=== PATIENT | female | born 1965 | race African-American/Black ===

== ENCOUNTER → 2016-11-11 | Outpatient (CLI) | payer OTHER ==
[~2016-11-11] MED LIST: 1-ME1LIQ PO; AMLO10TA2 PO; ATOR20TA15 PO; COZA50TA PO; FLUO20CA4 PO; FLUT1SPR5 EACH NARE; GLIP5TAB8 PO; HYDR25TA5 PO; IMIT25TA PO; POTA10TA2 PO; TRAM-492 PO; VENTAER INH; ZYRT10CA PO
[2016-11-11 13:49] LABS: BLOOD GAS CARBOXYHEMOGLOBIN 1.4 % (0-4); BLOOD GAS HCO3 28 mmol/L (22-26); BLOOD GAS METHEMOGLOBIN 1.3 % (0-2); BLOOD GAS O2 HGB SATURATION 93 % (90-100); BLOOD GAS OXYGEN CONTENT 15.2 Vol % (12.0-20.0); BLOOD GAS PCO2 45 mmHg (38-42); BLOOD GAS PO2 84 mmHg (61-120); BLOOD GAS TOTAL HGB 11.6 G/DL (12.0-16.0); TEMP CORR TO 98.6
[2016-11-11 13:50] LABS: CRITICAL VALUE NO; DRAW SITE RT RADIAL; FIO2 21 %; NUMBER OF ARTERIAL PUNCTURES 1; STAT NO; ULNAR PULSE PRESENT
--- NOTE | 2017-01-07 09:13 | RSPPFT ---
DATE OF PROCEDURE: 11/11/16 COMMENTS: Spirometry with FVC of 1.8, FEV1 of 1.7, FEV1/FVC ratio at 96%. TLC is 87% of predicted. Diffusion capacity is normal. Room air arterial blood gases show pH of 7.42, PCO2 of 45, PO2 of 84. IMPRESSION: 1. No evidence of airways obstruction. 2. No evidence of airways restriction. 3. Normal diffusion capacity. 4. Adequate oxygenation and alveolar ventilation.
== END ==
LOC: HRSP 11:21
PROVIDERS: ATTEND Internal Medicine Sleep Medicine
DX: R06.89 Other abnormalities of breathing (principal)
CPT/HCPCS: 36600; 82805; 94060; 94726; 94729

== ENCOUNTER 2016-12-14 01:14 | Emergency (ER) | payer OTHER ==
[~2016-12-14] VITALS: Ht 165.1 cm; Wt 104.7 kg
[~2016-12-14 01:14] MED LIST changes: -AMLO10TA2 PO; -FLUO20CA4 PO
[2016-12-14 01:25] VITALS: BP 142/92; PULSE 95; RESP 18; TEMP 98.8; O2SAT 99
[2016-12-14] MEDS ORDERED: RESP: ALBUTEROL 2.5 MG/IPRATROPIUM 0.5 MG NEB (SCH) INH ONE (01:45)
[2016-12-14] MEDS ORDERED: VENTAER INH (01:51)
--- NOTE | 2016-12-14 01:51 | PD ---
HPI Chief Complaint: Respiratory Symptoms Time Seen by Provider: 01:27 Travel History International Travel<30 days: No Contact w/Intl Traveler<30days: No Traveled to known affect area: No History of Present Illness HPI 51-year-old female complains of shortness of breath. Patient states that she was sleeping and started having gurgling noise from the lung that woke up. Patient has history of asthma and has an inhaler at home. Patient recently was diagnosed with sleep apnea. Patient denies any coughing congestion fever chills. Patient denies any chest pain. Patient denies any abdominal pain. Patient denies any nausea vomiting diarrhea. PFSH Past Medical History Arthritis: No Asthma: No Autoimmune Disease: No Blood Disorders: No Anxiety: No Depression: No Heart Rhythm Problems: No Cancer: No Cardiovascular Problems: No High Cholesterol: No Congestive Heart Failure: No COPD: No Cerebrovascular Accident: No Diabetes: Yes Diminished Hearing: No Endocrine: No GERD: No Glaucoma: No Genitourinary: No Headaches: No Hepatitis: No Hiatal Hernia: No Hypertension: Yes Immune Disorder: No Musculoskeletal: Yes (CURRENT KNEE ISSUES) Neurologic: Yes (MIGRAINES) Psychiatric: No Reproductive: No Respiratory: Yes (HX BRONCHITIS) Migraines: Yes Myocardial Infarction: No Seizures: No Sickle Cell Disease: No Sleep Apnea: No Thyroid Disease: No Ulcer: No Past Surgical History Abdominal Surgery: Yes (LAP KEE) AICD: No Cardiac Surgery: No Cholecystectomy: Yes Ear Surgery: No Endocrine Surgery: No Eye Surgery: No Gynecologic Surgery: Yes (hysterectomy) Hysterectomy: Yes Joint Replacement: No Oral Surgery: No Pacemaker: No Thoracic Surgery: No Social History Alcohol Use: No Tobacco Use: No Substance Use: No Allergies-Medications (Allergen,Severity, Reaction): Coded Allergies: Percocet (Verified Allergy, Intermediate, HIVES, 12/14/16) Lisinopril (Verified Allergy, Mild, Cough, 12/14/16) Reported Meds & Prescriptions Reported Meds & Active Scripts Active Ventolin Hfa 18 GM Inh (Albuterol Sulfate) 90 Mcg/Act Aer 2 Puff INH Q6H PRN Imitrex (Sumatriptan Succinate) 25 Mg Tab 25 Mg PO ONCE PRN If a satisfactory response has not been obtained at 2 hours, a second dose may be administered Glipizide 5 Mg Tab 5 Mg PO BIDAC Take 30 minutes before a meal Flonase Nasal [place] (Fluticasone Nasal [place]) 50 Mcg/Act [place] 100 Mcg EACH NARE DAILY Reported Zyrtec Allergy (Cetirizine HCl) 10 Mg Cap 10 Mg PO DAILY Cozaar (Losartan Potassium) 50 Mg Tab 50 Mg PO BID Hydrochlorothiazide 25 Mg Tab 25 Mg PO BID Atorvastatin (Atorvastatin Calcium) 20 Mg Tab 20 Mg PO HS Review of Systems General / Constitutional: No: Fever Eyes: No: Visual changes HENT: No: Headaches Cardiovascular: No: Chest Pain or Discomfort Respiratory: Positive: Shortness of Breath Gastrointestinal: No: Abdominal Pain Genitourinary: No: Dysuria Musculoskeletal: No: Pain Skin: No Rash Neurologic: No: Weakness Psychiatric: No: Depression Endocrine: No: Polydipsia Hematologic/Lymphatic: No: Easy Bruising Physical Exam Narrative GENERAL: Well-nourished, well-developed patient. SKIN: Warm and dry. HEAD: Normocephalic. EYES: No scleral icterus. No injection or drainage. NECK: Supple, trachea midline. No JVD or lymphadenopathy. CARDIOVASCULAR: Regular rate and rhythm without murmurs, gallops, or rubs. RESPIRATORY: Breath sounds equal bilaterally. No accessory muscle use. GASTROINTESTINAL: Abdomen soft, non-tender, nondistended. MUSCULOSKELETAL: No cyanosis, or edema. BACK: Nontender without obvious deformity. No CVA tenderness. Neurologic exam normal. Data Data Last Documented VS Vital Signs Date Time Temp Pulse Resp B/P Pulse Ox O2 Delivery O2 Flow Rate FiO2 12/14/16 01:44 88 18 99 Room Air 12/14/16 01:25 98.8 142/92 Orders Chest, Single Ap (12/14/16 01:45) Albuterol-Ipratropium Neb (Duoneb Neb) (12/14/16 01:45) [facility] Medical Decision Making Medical Screen Exam Complete: Yes Emergency Medical Condition: Yes Interpretation(s) 2 26 AM. Chest x-ray shows no acute consolidation. Differential Diagnosis Differential diagnosis including acute exacerbation of asthma, bronchitis, pneumonia, pneumothorax. Narrative Course 51-year-old female with sudden onset of shortness of breath. Patient's O2 saturation is 99-100 percent at room air. Examination benign. History of asthma. Diagnosis Primary Impression: Acute asthma exacerbation Qualified Code: J45.21 - Mild intermittent asthma with acute exacerbation Patient Instructions: General Instructions Additional Instructions: Used inhaler as directed. Follow-up with personal physician. Return if worse. Med/Other Pt SpecificInfo: Prescription(s) given Scripts Albuterol 18 GM Inh (Ventolin Hfa 18 GM Inh)90 Mcg/Act Aer2 Puff INH Q6H PRN ( SHORTNESS OF BREATH) #1 INHALER Ref 0 Prov:Palmer Duque MD 12/14/16 Disposition: 01 DISCHARGE HOME Condition: Stable Palmer Duque MD Dec 14, 2016 01:51
[2016-12-14 02:43] VITALS: BP 146/84; PULSE 76; RESP 18; O2SAT 98
--- NOTE | 2016-12-14 02:43 | RADHPO ---
EXAM DATE/TIME: 12/14/2016 01:58 [facility] COMPARISON: No previous studies available for comparison. INDICATIONS : Short of breath. MEDICAL HISTORY : Diabetes mellitus type II. Hypertension SURGICAL HISTORY : None. ENCOUNTER: Initial ACUITY: 1 day PAIN SCORE: 6/10 LOCATION: Bilateral chest FINDINGS: Cardiomegaly. No focal consolidation or significant effusion. No pneumothorax. Minimal basilar atelec tasis. CONCLUSION: 1. Mild cardiomegaly. Minimal basilar atelectasis. Kurt White MD on December 14, 2016 at 2:40 Board Certified Radiologist. This report was verified electronically.
[2016-12-14] MEDS ORDERED: POTA10TA2 PO (15:10)
[2017-01-21] MEDS ORDERED: FLUO20CA4 PO (16:35)
[2017-02-22] MEDS ORDERED: ATOR20TA15 PO (13:10)
[2017-02-22] MEDS ORDERED: GLIP5TAB8 PO (13:12)
[2017-03-10] MEDS ORDERED: AMLO10TA2 PO (15:25)
[2017-03-29] MEDS ORDERED: HYDR25TA5 PO (13:38)
[2017-03-30] MEDS ORDERED: COZA50TA PO (08:47)
== END 2016-12-14 02:44 | disposition home or self-care (01) ==
LOC: PHED 01:14
DX: J45.901 Unspecified asthma with (acute) exacerbation (principal); E11.9 Type 2 diabetes mellitus without complications; I10 Essential (primary) hypertension; Z79.4 Long term (current) use of insulin
CPT/HCPCS: 71010; 94664; 99284

== ENCOUNTER 2016-12-14 11:39 | Observation (INO) | payer OTHER ==
[2016-12-14] VITALS (7 sets, daily range): BP systolic 118–179; BP diastolic 66–103; PULSE 68–94; RESP 16–18; TEMP 98–98.8; O2SAT 95–99
[2016-12-14] MEDS ORDERED: ASPIRIN 81 MG CHEW TAB PO ONE (12:30)
[2016-12-14] MEDS ORDERED: SODIUM CHLORIDE 0.9% FLUSH 5 ML FLUSH IVF PRN ×2 (12:30→14:00)
[2016-12-14 12:54] LABS: AUTOMATED NEUTROPHIL # 4.1 TH/MM3 (1.8-7.7); BASOPHIL % 0.5 % (0.0-2.0); EOSINOPHIL # 0.2 TH/MM3 (0-0.4); EOSINOPHIL % 2.8 % (0.0-4.0); HEMATOCRIT 35.1 % (35.0-46.0); HEMO FLAGS DIFF FINAL; LYMPH % 35.1 % (9.0-44.0); LYMPHOCYTE # 2.6 TH/MM3 (1.0-4.8); MEAN CELL VOLUME 84.2 FL (80.0-100.0); MEAN CORPUSCULAR HEMOGLOBIN 28.2 PG (27.0-34.0); MEAN CORPUSCULAR HGB CONC 33.5 % (32.0-36.0); MONO % 7.1 % (0.0-8.0); NEUT % 54.5 % (16.0-70.0); PLATELET COUNT 189 TH/MM3 (150-450); RED BLOOD COUNT 4.17 MIL/MM3 (4.00-5.30); RED CELL DISTRIBUTION WIDTH 14.5 % (11.6-17.2); WHITE BLOOD COUNT 7.5 TH/MM3 (4.0-11.0)
[2016-12-14 13:06] LABS: APTT (PATIENT) 27.8 SEC (24.3-30.1); PROTHROMBIN TIME - PATIENT 10.6 SEC (9.8-11.6)
--- NOTE | 2016-12-14 13:08 | PD ---
HPI Chief Complaint: Chest Pain Time Seen by Provider: 12:12 Travel History International Travel<30 days: No Contact w/Intl Traveler<30days: No Traveled to known affect area: No History of Present Illness HPI Is a 51-year-old woman who presents to the emergency department complaining of chest pain. She states that she first started having some headache yesterday. She is prone to headaches especially in the past when she is around her menstrual cycle. She went to the [facility] and was taking Excedrin Migraine. She woke up in the middle the night with sweats she describes as gurgling breathing associated with shortness of breath and pressure in her chest. She went to the [place] emergency department where she had a chest x-ray done that was negative and a bronchodilator. States she felt better after the albuterol and so she went home. She was diagnosed of asthma. She states she's had bronchospasm and asthma-like symptoms to strong perfumes in the past, but has never been really diagnosed with asthma. She went to follow-up with her primary physician today after she was not feeling much better, was describing this pressure-like chest discomfort that she was having, and was referred back to the emergency department for further cardiac evaluation. Patient endorses some mild chest discomfort at this time. No other complaints. She is a history of sleep apnea, hypertension, diabetes, and obesity. She does not wear C Pap machine now. History Past Medical History Narrative Medical Hypertension Diabetes Obesity OTTO Influenza Vaccination: No Menopausal: Yes Social History Alcohol Use: No Tobacco Use: No Allergies-Medications (Allergen,Severity, Reaction): Coded Allergies: Percocet (Verified Allergy, Intermediate, HIVES, 12/14/16) Lisinopril (Verified Allergy, Mild, Cough, 12/14/16) Reported Meds & Prescriptions Reported Meds & Active Scripts Active Ventolin Hfa 18 GM Inh (Albuterol Sulfate) 90 Mcg/Act Aer 2 Puff INH Q6H PRN Imitrex (Sumatriptan Succinate) 25 Mg Tab 25 Mg PO ONCE PRN If a satisfactory response has not been obtained at 2 hours, a second dose may be administered Glipizide 5 Mg Tab 5 Mg PO BIDAC Take 30 minutes before a meal Flonase Nasal [place] (Fluticasone Nasal [place]) 50 Mcg/Act [place] 100 Mcg EACH NARE DAILY Reported Zyrtec Allergy (Cetirizine HCl) 10 Mg Cap 10 Mg PO DAILY Cozaar (Losartan Potassium) 50 Mg Tab 50 Mg PO BID Hydrochlorothiazide 25 Mg Tab 25 Mg PO BID Atorvastatin (Atorvastatin Calcium) 20 Mg Tab 20 Mg PO HS Review of Systems Except as stated in HPI: all other systems reviewed are Neg Physical Exam Narrative GENERAL: Well-appearing 51 year-old woman, no acute distress. SKIN: Warm and dry. NECK: Trachea midline. No JVD. CARDIOVASCULAR: Regular rate and rhythm. Soft systolic murmur. RESPIRATORY: No accessory muscle use. Clear to auscultation. Breath sounds equal bilaterally. GASTROINTESTINAL: Abdomen soft, non-tender, nondistended. Hepatic and splenic margins not palpable. MUSCULOSKELETAL: No obvious deformities. No clubbing. No cyanosis. No edema. NEUROLOGICAL: Awake and alert. No obvious cranial nerve deficits. Motor grossly within normal limits. Normal speech. PSYCHIATRIC: Appropriate mood and affect; insight and judgment normal. Data Data Last Documented VS Vital Signs Date Time Temp Pulse Resp B/P Pulse Ox O2 Delivery O2 Flow Rate FiO2 12/14/16 12:26 96 Room Air 12/14/16 12:26 171/85 12/14/16 11:41 98.2 94 16 Orders Electrocardiogram (12/14/16 ) Complete Blood Count With Diff (12/14/16 12:22) Comprehensive Metabolic Panel (12/14/16 12:22) Magnesium (Mg) (12/14/16 12:22) Prothrombin Time / Inr (Pt) (12/14/16 12:22) Act Partial Throm Time (Ptt) (12/14/16 12:22) Troponin I (12/14/16 12:22) Lipase (12/14/16 12:22) Ecg Monitoring (12/14/16 12:22) Bilateral Bp Monitoring (12/14/16 12:22) Iv Access Insert/Monitor (12/14/16 12:22) Oximetry (12/14/16 12:22) Oxygen Administration (12/14/16 12:22) Aspirin Chew (Aspirin Chew) (12/14/16 12:30) Sodium Chloride 0.9% Flush (Ns Flush) (12/14/16 12:30) Labs Laboratory Tests Test 12/14/16 12:25 White Blood Count 7.5 TH/MM3 Red Blood Count 4.17 MIL/MM3 Hemoglobin 11.8 GM/DL Hematocrit 35.1 % Mean Corpuscular Volume 84.2 FL Mean Corpuscular Hemoglobin 28.2 PG Mean Corpuscular Hemoglobin 33.5 % Concent Red Cell Distribution Width 14.5 % Platelet Count 189 TH/MM3 Mean Platelet Volume 9.9 FL Neutrophils (%) (Auto) 54.5 % Lymphocytes (%) (Auto) 35.1 % Monocytes (%) (Auto) 7.1 % Eosinophils (%) (Auto) 2.8 % Basophils (%) (Auto) 0.5 % Neutrophils # (Auto) 4.1 TH/MM3 Lymphocytes # (Auto) 2.6 TH/MM3 Monocytes # (Auto) 0.5 TH/MM3 Eosinophils # (Auto) 0.2 TH/MM3 Basophils # (Auto) 0.0 TH/MM3 CBC Comment DIFF FINAL Differential Comment Prothrombin Time 10.6 SEC Prothromb Time International 1.0 RATIO Ratio Activated Partial 27.8 SEC Thromboplast Time Sodium Level 137 MEQ/L Potassium Level 3.3 MEQ/L Chloride Level 97 MEQ/L Carbon Dioxide Level 30.3 MEQ/L Anion Gap 10 MEQ/L Blood Urea Nitrogen 15 MG/DL Creatinine 1.21 MG/DL Estimat Glomerular Filtration 57 ML/MIN Rate Random Glucose 154 MG/DL Calcium Level 9.1 MG/DL Magnesium Level 1.7 MG/DL Total Bilirubin 0.4 MG/DL Aspartate Amino Transf 35 U/L (AST/SGOT) Alanine Aminotransferase 37 U/L (ALT/SGPT) Alkaline Phosphatase 99 U/L Troponin I LESS THAN 0.02 NG/ML Total Protein 8.4 GM/DL Albumin 3.8 GM/DL Lipase 129 U/L [facility] Medical Decision Making Medical Screen Exam Complete: Yes Emergency Medical Condition: Yes Interpretation(s) My review of EKG: Normal sinus rhythm at a rate of 76, normal axis, no definite evidence of acute ischemia. CBC is unremarkable CMP mildly elevated creatinine. Troponin negative. Lipase normal. Coags unremarkable Chest x-ray from earlier this morning: Mild cardiomegaly. Minimal bibasilar atelectasis. Differential Diagnosis Sleep apnea, bronchospasm, bronchitis, ACS, PE, other Narrative Course Medical decision making This is a 51 year-old woman presents emergency Department with abnormal breathing last night associated with shortness of breath and pressure-like chest discomfort. She looks well now. Suspect this is more related to her sleep apnea than anything else. I don't hear any wheezing to suggest bronchospasm. X-ray yesterday was negative. EKG is nondiagnostic. Given the pressure-like chest discomfort, at this point we'll recommend admission to chest pain Center for observation. Diagnosis Primary Impression: Chest pain Good Melissa MD Dec 14, 2016 13:07
[2016-12-14 13:11] LABS: ANION GAP 10 MEQ/L (5-15); AST (GOT) 35 U/L (15-37); BICARBONATE 30.3 MEQ/L (21.0-32.0); BLOOD UREA NITROGEN 15 MG/DL (7-18); CHLORIDE 97 MEQ/L (98-107); GLOMERULAR FILTRATION RATE 57 ML/MIN (>89); MAGNESIUM 1.7 MG/DL (1.5-2.5); POTASSIUM 3.3 MEQ/L (3.5-5.1); SODIUM (NA) 137 MEQ/L (136-145)
[2016-12-14 13:16] LABS: ALKALINE PHOSPHATASE 99 U/L (45-117); ALT (GPT) 37 U/L (10-53); TOTAL BILIRUBIN ADULT 0.4 MG/DL (0.2-1.0)
[2016-12-14] MEDS ORDERED: SODIUM CHLOR 0.9% 1000 ML INJ 1,000 ML IV SCH (13:58)
[2016-12-14] MEDS ORDERED: GLUCAGON 1 MG/ML VIAL IM/SQ PRN (14:00)
[2016-12-14] MEDS ORDERED: POTASSIUM CHLORIDE 25 MEQ EFFERVESCENT TAB PO ONE (14:00)
[2016-12-14] MEDS ORDERED: cloNIDine HCL 0.1 MG TAB PO PRN (14:00)
[2016-12-14] MEDS ORDERED: ACETAMINOPHEN 500 MG CPLT PO PRN (14:00)
[2016-12-14] MEDS ORDERED: PANTOPRAZOLE SODIUM 40 MG VIAL IVP ONE (14:00)
[2016-12-14] MEDS ORDERED: ALPRAZolam 0.25 MG TAB PO PRN (14:00)
[2016-12-14] MEDS ORDERED: DEXTROSE 50% IN WATER 50 ML VIAL(D50) IV PRN (14:00)
[2016-12-14] MEDS ORDERED: ONDANSETRON HCL 4 MG/2 ML VIAL IV PRN (14:00)
[2016-12-14] MEDS ORDERED: RESP: ALBUTEROL 2.5 MG/IPRATROPIUM 0.5 MG NEB (PRN) INH (14:00)
--- NOTE | 2016-12-14 14:59 | HHI.HP ---
[facility] Primary Care Physician Janae Paredes MD Chief Complaint Chest pain History of Present Illness This is a 51-year-old female that presents to the ED at the request of her primary care physician to evaluate her chest discomfort. Patient states that she was in the [facility] emergency department because of migraines, shortness of breath, and chest discomfort. She states she was told that she has asthma. She was given a breathing treatment and was feeling better. Discomfort persisted but was improved. She describes the discomfort as a tightness. Denies everything told that she has asthma but states she is been told that she had bronchospasm and has inhalers for that. Denies history of CAD but states her family does. Her brother and mother have CAD. She had no nausea diaphoresis with her symptoms. Review of Systems General: Patient denies fevers, chills recent, and recent travel HEENT: Patient denies headache, sore throat, difficulty swallowing. Cardiovascular: Has the chest discomfort as mentioned above. Denies sensation of heart beating rapidly or irregularly. Denies diaphoresis. No syncope. Respiratory: Was having some shortness of breath. She also felt as if she was gurgling when she was breathing. Denies inspirational chest discomfort. Denies coughing wheezing or hemoptysis. GI: Patient denies nausea, vomiting, diarrhea, abdominal pain, bloody stools. Musculoskeletal: Patient denies joint pain or edema. Denies calf pain or edema. Neurovascular: Patient denies numbness, tingling, weakness in extremities. Denies headache. Endocrine: Denies polyuria and polydipsia. Hematologic: Denies easy bruising. Skin: Denies rash or itching. Past Family Social History Allergies: Coded Allergies: Percocet (Verified Allergy, Intermediate, HIVES, 12/14/16) Lisinopril (Verified Allergy, Mild, Cough, 12/14/16) Past Medical History Hypertension, hyperlipidemia, diabetes, migraines, and recently diagnosed with sleep apnea but does not have a CPAP device at home. Denies known CAD. Past Surgical History Bilateral carpal tunnel release, bilateral knees, hysterectomy, and cholecystectomy. Reported Medications Reported Meds & Active Scripts Active Ventolin Hfa 18 GM Inh (Albuterol Sulfate) 90 Mcg/Act Aer 2 Puff INH Q6H PRN Imitrex (Sumatriptan Succinate) 25 Mg Tab 25 Mg PO ONCE PRN If a satisfactory response has not been obtained at 2 hours, a second dose may be administered Glipizide 5 Mg Tab 5 Mg PO BIDAC Take 30 minutes before a meal Flonase Nasal [place] (Fluticasone Nasal [place]) 50 Mcg/Act [place] 100 Mcg EACH NARE DAILY Reported Zyrtec Allergy (Cetirizine HCl) 10 Mg Cap 10 Mg PO DAILY Cozaar (Losartan Potassium) 50 Mg Tab 50 Mg PO BID Hydrochlorothiazide 25 Mg Tab 25 Mg PO BID Atorvastatin (Atorvastatin Calcium) 20 Mg Tab 20 Mg PO HS Active Ordered Medications Current Medications Medications (Trade) Dose Ordered Sig/Nacho Route Start Time Stop Time Status Last Admin (NS Flush) 2 ml UNSCH PRN IVF 12/14/16 14:00 (NS Flush) 2 ml BID IVF 12/14/16 21:00 (Tylenol) 500 mg Q4H PRN PO 12/14/16 14:00 ([place] 7.5-325 Mg) 1 tab Q4H PRN PO 12/14/16 14:00 UNV (Zofran Inj) 4 mg Q6H PRN IV 12/14/16 14:00 (Aspirin) 325 mg DAILY PO 12/15/16 09:00 (Xanax) 0.25 mg Q8H PRN PO 12/14/16 14:00 (D50w (Vial) Inj) 25 ml UNSCH PRN IV 12/14/16 14:00 (Glucagon Inj) 1 mg UNSCH PRN IM/SQ 12/14/16 14:00 UNV Clonidine 0.1 mg 0.1 mg Q4H PRN PO 12/14/16 14:00 (NS 1000 ml Inj) 1,000 ml @ 125 mls/hr Q8H IV 12/14/16 13:58 12/14/16 21:57 (K-Lyte Cl Eff) 25 meq NOW ONCE PO 12/14/16 14:00 12/14/16 14:01 UNV Family History Her brother has CAD and has had a CABG in his 50s. Her mother has CAD with stents. Social History Patient is a lifetime nonsmoker. Denies alcohol or illicit drugs. Physical Exam Vital Signs Vital Signs Date Time Temp Pulse Resp B/P Pulse Ox O2 Delivery O2 Flow Rate FiO2 12/14/16 14:24 77 18 179/103 99 Room Air 12/14/16 12:26 96 Room Air 12/14/16 12:26 171/85 12/14/16 12:26 96 Room Air 12/14/16 11:41 98.2 94 16 163/90 98 Physical Exam GENERAL: This is a well-nourished, well-developed patient, in no apparent distress. Patient speaks in clear complete sentences. Patient is pleasant. HEENT: Head is atraumatic and normocephalic. Neck is supple without lymphadenopathy and trachea is midline. No JVD or carotid bruits. CARDIOVASCULAR: Regular rate and rhythm without murmurs, gallops, or rubs. RESPIRATORY: Chest wall is very tender when palpating over the sternum. This is the discomfort that brought her to the ED. Clear to auscultation. Breath sounds equal bilaterally. No wheezes, rales, or rhonchi. No use of accessory muscles. GASTROINTESTINAL: Abdomen is nontender, nondistended. Abdomen soft. No obvious pulsatile mass or bruit. No CVA tenderness. Strong femoral pulses bilaterally. Normal bowel sounds in all quadrants. MUSCULOSKELETAL: Patient is moving upper and lower extremities freely. No calf tenderness or edema, no Homans sign. Strong pulses in upper and lower extremities. NEUROLOGICAL: Patient is alert and oriented. Cranial nerves 2-12 are grossly intact. No focal deficits and speech is clear. SKIN: No rash and turgor is normal. Laboratory Laboratory Tests Test 12/14/16 12:25 White Blood Count 7.5 Red Blood Count 4.17 Hemoglobin 11.8 Hematocrit 35.1 Mean Corpuscular Volume 84.2 Mean Corpuscular Hemoglobin 28.2 Mean Corpuscular Hemoglobin 33.5 Concent Red Cell Distribution Width 14.5 Platelet Count 189 Mean Platelet Volume 9.9 Neutrophils (%) (Auto) 54.5 Lymphocytes (%) (Auto) 35.1 Monocytes (%) (Auto) 7.1 Eosinophils (%) (Auto) 2.8 Basophils (%) (Auto) 0.5 Neutrophils # (Auto) 4.1 Lymphocytes # (Auto) 2.6 Monocytes # (Auto) 0.5 Eosinophils # (Auto) 0.2 Basophils # (Auto) 0.0 CBC Comment DIFF FINAL Differential Comment Prothrombin Time 10.6 Prothromb Time International 1.0 Ratio Activated Partial 27.8 Thromboplast Time Sodium Level 137 Potassium Level 3.3 Chloride Level 97 Carbon Dioxide Level 30.3 Anion Gap 10 Blood Urea Nitrogen 15 Creatinine 1.21 Estimat Glomerular Filtration 57 Rate Random Glucose 154 Calcium Level 9.1 Magnesium Level 1.7 Total Bilirubin 0.4 Aspartate Amino Transf 35 (AST/SGOT) Alanine Aminotransferase 37 (ALT/SGPT) Alkaline Phosphatase 99 Troponin I LESS THAN 0.02 Total Protein 8.4 Albumin 3.8 Lipase 129 Result Diagram: 12/14/16 1225 12/14/16 1225 Imaging Patient had a chest x-ray last night and [facility] ED. There was mild cardiomegaly. Minimal basilar atelectasis. Course Initial EKG is sinus rhythm without significant ST segment depressions or elevation. Nonspecific T waves in leads V1 and V2. Assessment and Plan Assessment and Plan * Chest pain: Patient will continue to have serial cardiac enzymes and EKGs for ruling out purposes. She will be evaluated by Dr. Nixon in the chest pain center. She will proceed with stress testing in the morning if she were to rule out. She would be discharged home if her stress test were to be nonischemic. * Hypertension: Continue her medication. * Hyperlipidemia: Continue current medication. * Diabetes: Patient will need to follow diabetic diet. She will need to resume her medication discharge. She'll be covered with sliding scale coverage while the chest pain center. * Hypokalemia: Patient was given potassium supplementation. * Migraines: Patient will have an edge easy as needed. She states that she can take Lortab. * Sleep apnea: Patient will discuss with her physician to get a CPAP device. Adam Gan Dec 14, 2016 14:58
[2016-12-14] MEDS ORDERED: POTA10TA2 PO (15:10)
[2016-12-14 16:12] LABS: CREATINE KINASE 489 U/L (26-192)
[2016-12-14 16:24] LABS: CKMB 2.8 NG/ML (0.5-3.6)
[2016-12-14] MEDS: INSULIN ASPART SUPPLEMENTAL SCALE SQ SCH ×2 (16:30→20:26)
--- NOTE | 2016-12-14 17:01 | EKG ---
Date Performed: 12/14/2016 Time Performed: 12:14:09 PTAGE: 51 years EKG: Sinus rhythm NONSPECIFIC T-WAVE ABNORMALITY BORDERLINE ECG Since PREVIOUS TRACING , no significant change noted PREVIOUS TRACIN04/08/2015 09.09 DOCTOR: Dominga Nixon Interpretating Date/Time 12/14/2016 16:59:22
--- NOTE | 2016-12-14 17:01 | EKG ---
Date Performed: 12/14/2016 Time Performed: 15:30:17 PTAGE: 51 years EKG: Sinus rhythm NONSPECIFIC T-WAVE ABNORMALITY BORDERLINE ECG Since PREVIOUS TRACING , no significant change noted PREVIOUS TRACIN12/14/2016 12.14 DOCTOR: Dominga Nixon Interpretating Date/Time 12/14/2016 16:59:39
[2016-12-14] MEDS: ACETAMINOPHEN/HYDROcodone 325 MG/7.5 MG TAB PO PRN (18:08)
[2016-12-14 19:02] LABS: CREATINE KINASE 483 U/L (26-192)
[2016-12-14 19:14] LABS: CKMB 2.8 NG/ML (0.5-3.6)
[2016-12-14] MEDS: SODIUM CHLORIDE 0.9% FLUSH 5 ML FLUSH IVF SCH (20:25)
[2016-12-14] MEDS: LOSARTAN 50 MG TAB PO SCH (20:27)
[2016-12-14] MEDS: HYDROCHLOROTHIAZIDE 25 MG TAB PO SCH (20:27)
[2016-12-14] MEDS ORDERED: ATORVASTATIN 20 MG TAB PO SCH (21:00)
[2016-12-15 02:52] VITALS: BP 109/70; PULSE 82; RESP 22; TEMP 98.7; O2SAT 99
[2016-12-15] MEDS: INSULIN ASPART SUPPLEMENTAL SCALE SQ SCH ×2 (05:33→11:00)
[2016-12-15 07:34] VITALS: BP 118/71; PULSE 77; RESP 19; TEMP 97.9
[2016-12-15 08:00] VITALS: PULSE 90
[2016-12-15] MEDS ORDERED: ASPIRIN 325 MG TAB PO SCH (09:00)
[2016-12-15] MEDS ORDERED: POTASSIUM CHLORIDE 10 MEQ CONTROLLED RELEASE TAB PO SCH (11:00)
--- NOTE | 2016-12-15 11:01 | RADRPT ---
EXAM DATE/TIME: 12/15/2016 08:38 [facility] COMPARISON: No previous studies available for comparison. INDICATIONS : Chest tightness with shortness of breath for one day. Angina DOSE: 31.2 mCi Tc99m Myoview at stress 11.0 mCi Tc99m Myoview at rest REST HEART RATE: 91 BPM TARGET HEART RATE: 143 BPM MAX HEART RATE: 149 BPM REST BLOOD PRESSURE: 138/84 mmHg MAX BLOOD PRESSURE: 148/80 mmHg EJECTION FRACTION: 33% MEDICAL HISTORY : Hypertension. Diabetes mellitus type 2. Asthma. SURGICAL HISTORY : Hysterectomy. Cholecystectomy. ENCOUNTER: Initial ACUITY: 1 day PAIN SCALE: 6/10 LOCATION: Midsternal chest TECHNIQUE: The patient underwent upright treadmill exercise in the chest pain center. Continuous ECG tracing wa s monitored during stress. Gated SPECT imaging was performed after stress, and conventional SPECT im aging was performed at rest. The examination was performed on a SPECT/CT scanner, both attenuation-c orrected and non-corrected datasets were reviewed. FINDINGS: There is dilatation of the ventricular cavity. Ejection fraction is 33% with global hypokinesis, wor se in the anterior septal region. There is affixed defect in the anterior septal region beginning in mid ventricular wall extending to the apex. There is redistribution in the septum extending up towards the apex malleolar of 10-15%. The best perfused myocardium as is the lateral and inferior wall. CONCLUSION: Stress-induced redistribution in the septal region extending towards the base consistent with ischemi a. Hypokinesis as described above. RISK CATEGORY: Intermediate (1-3% Annual Mortality Rate) Rehan Orellana MD FACR on December 15, 2016 at 10:58 Board Certified Radiologist. This report was verified electronically.
[2016-12-15] MEDS: LOSARTAN 50 MG TAB PO SCH (11:33)
[2016-12-15] MEDS: HYDROCHLOROTHIAZIDE 25 MG TAB PO SCH (11:34)
[2016-12-15] MEDS: SODIUM CHLORIDE 0.9% FLUSH 5 ML FLUSH IVF SCH (11:34)
[2016-12-15 11:46] VITALS: BP 124/83; PULSE 97; RESP 20; TEMP 98; O2SAT 100
--- NOTE | 2016-12-15 12:54 | MB ---
cc: MONIQUE HENRY DATE OF CONSULTATION: 12/15/2016 INDICATION Chest pain. HISTORY OF PRESENT ILLNESS This is a 51-year-old female who has no prior history of heart disease, who presented to the emergency department with acute onset of substernal chest pain. She was over at the [facility] due to migraine and some shortness of breath earlier. She has history of asthma. She continued to have persistent substernal tightness and was sent over to the chest pain center here. She had negative troponin, unremarkable electrocardiogram. She did also have some nausea and mild diaphoresis with her symptoms. She underwent stress test which revealed intermediate risk with stress-induced redistribution of the septal region, 10-15% myocardium, in addition to low ejection fraction of 33%. She denies any prior history of known heart disease or cardiomyopathy. She has not had any shortness of breath with lying flat or edema. We are consulted for consideration of cardiac catheterization. PAST MEDICAL HISTORY 1. Hypertension. 2. Hyperlipidemia. 3. Diabetes. 4. Migraines. 5. Sleep apnea. ALLERGIES 1. PERCOCET. 2. LISINOPRIL. MEDICATIONS 1. Ventolin. 2. Imitrex. 3. Glipizide. Reported medications: 1. Zyrtec. 2. Cozaar. 3. Hydrochlorothiazide. 4. Atorvastatin. REVIEW OF SYSTEMS A 12-point review of systems was performed and negative unless otherwise noted in the history of present illness. FAMILY HISTORY Denies any family history of early coronary artery disease or sudden cardiac . SOCIAL HISTORY Denies any alcohol, tobacco or drug use. PHYSICAL EXAMINATION VITAL SIGNS: Temperature 98, pulse 97, blood pressure 124/83 mmHg. GENERAL: Alert and oriented x3, in no acute distress. HEENT: Exam shows pupils reactive to light and accommodation. Extraocular movements are intact. NECK: No jugular venous distention. No thyromegaly. No lymphadenopathy. No carotid bruits. LUNGS: Clear to auscultation bilaterally. CARDIOVASCULAR: Regular rate and rhythm without murmurs, rubs or gallops. ABDOMEN: Nontender, nondistended. Good bowel sounds. No hepatosplenomegaly. EXTREMITIES: No clubbing, cyanosis or edema. Good peripheral pulses. NEUROLOGIC: Cranial nerves intact. Motor and sensory grossly intact. LABORATORY DATA WBC 7.5, hemoglobin 11.8, platelet count 189. INR is 1. Sodium 137, potassium 2.3, BUN 15, creatinine 1.21. Troponin is negative x3. ELECTROCARDIOGRAM Electrocardiogram is sinus rhythm, nonspecific ST-T wave changes. ASSESSMENT 1. Unstable angina. 2. Hypertension. 3. Hyperlipidemia. 4. Diabetes. PLAN The patient has typical and atypical features to her symptoms. Troponins were negative. Electrocardiogram is unremarkable but the stress test is intermediate risk. She has multiple cardiovascular risk factors. After discussion she is agreeable to proceed with cardiac catheterization for a definitive diagnosis. She is n.p.o. Will gently hydrate her for a mild elevation in creatinine. We will attempt from a radial approach. Will follow-up with a 2-D echocardiogram to document ejection fraction. I think the nuclear stress test is likely inaccurate as she has no clinical symptoms consistent with cardiomyopathy or congestive heart failure. MD HEATHER Green/[place] /12:20 PM /12:41 PM
[2016-12-15] MEDS ORDERED: HEPARIN SODIUM - IV 10,000 UNITS/10 ML VIAL ONE (14:26)
[2016-12-15] MEDS ORDERED: HEPARIN-NS/PF INJ 500 ML ONE (14:26)
[2016-12-15] MEDS ORDERED: MIDAZOLAM HCL 2 MG/2 ML VIAL ONE (14:26)
[2016-12-15] MEDS ORDERED: IOHEXOL 350 MG/ML 100 ML BTL (for Cath Lab) OTHER ONE (14:58)
--- NOTE | 2016-12-15 15:05 | HHI.DS ---
Discharge Summary Admission Date Dec 14, 2016 at 13:38 Admitting Diagnosis chest pain CBC/BMP: 12/14/16 1225 12/14/16 1225 Significant Findings Laboratory Tests Test 12/14/16 12/14/16 12/14/16 12:25 15:25 18:24 Potassium Level 3.3 MEQ/L (3.5-5.1) Chloride Level 97 MEQ/L (98-107) Creatinine 1.21 MG/DL (0.50-1.00) Estimat Glomerular Filtration 57 ML/MIN (>89) Rate Random Glucose 154 MG/DL (74-106) Troponin I LESS THAN 0.02 LESS THAN 0.02 LESS THAN 0.02 NG/ML NG/ML NG/ML (0.02-0.05) (0.02-0.05) (0.02-0.05) Total Protein 8.4 GM/DL (6.4-8.2) Total Creatine Kinase 489 U/L 483 U/L (26-192) (26-192) Pt Condition on Discharge: Good Discharge Disposition: Discharge Home Discharge Instructions DIET: Follow Instructions for: Heart Healthy Diet, Diabetic Diet Activities you can perform: Weight Bearing as Good Hurtado MD Dec 15, 2016 15:05
[2016-12-15] MEDS ORDERED: BACITRACIN OINT 0.9 GM PKT TOP ONE (15:15)
[2016-12-15] MEDS ORDERED: MISC INFORMATION XX ONE (15:15)
--- NOTE | 2016-12-15 16:10 | MA ---
cc: GOOD HENRY DATE 12/15/2016 COMPANY ACCOUNTANT Good Henry MD, [facility], PROCEDURE PERFORMED 1. Fluoroscopy with interpretation. 2. Left heart catheterization. 3. Left ventriculography 4. Coronary angiography. METHOD Risks, benefits and alternatives were discussed with the patient. The patient understood and consented to the procedure. PROCEDURE DETAILS The patient was brought in to the catheterization lab and placed on the catheterization table. The right wrist was prepped and draped in a sterile fashion. The right wrist was anesthetized with 2% Lidocaine. The right radial artery was cannulated and a 6 [place] 7 cm sheath was placed without difficulty. LEFT HEART CATHETERIZATION A 6 [place] JR5 catheter was advanced across the aortic valve without difficulty. Intraventricular hemodynamic pressure 100/4 mmHg. LEFT VENTRICULOGRAPHY Left ventriculography was performed in a right anterior oblique view using a 6 [place] angled pigtail catheter. 30 cc contrast injection with good opacification. Left ventricular ejection fraction visually estimated at 65% without regional wall motion abnormalities. No significant mitral regurgitation noted. CORONARY ANGIOGRAPHY 1. The left main coronary circulation is angiographically normal. 2. The left anterior descending coronary has mild luminal irregularities proximally. There is a large first diagonal branch that is angiographically normal. The remainder of the left anterior descending coronary is angiographically normal. 3. Left circumflex gives rise to an obtuse marginal branch which is angiographically normal. 4. The right coronary is a large dominant vessel giving rise to a posterior descending branch. Right coronary is angiographically normal. CONCLUSIONS 1. Mild non-obstructing coronary artery disease. 2. Normal left ventricular systolic function. PLAN The patient's symptoms do not appear to be cardiac in etiology. We will monitor for any post procedural complications. We will continue with medical therapy. She can follow up on an outpatient basis with her primary care doctor. Good Henry MD SM/KK /3:04 PM /3:55 PM
--- NOTE | 2016-12-15 16:16 | EKG ---
Date Performed: 12/14/2016 Time Performed: 18:41:32 PTAGE: 51 years EKG: Sinus rhythm NONSPECIFIC T-WAVE ABNORMALITY BORDERLINE ECG PREVIOUS TRACING : 12/14/2016 15.30 Since previous tracing, no significant change noted DOCTOR: Derik Bartlett Interpretating Date/Time 12/15/2016 16:14:54
--- NOTE | 2016-12-15 16:16 | TR ---
Date Performed: 12/15/2016 Time Performed: 09:26:22 DOCTOR: Derik Bartlett DRUG LIST: CLINICAL HISTORY: CHEST PAIN REASON FOR TEST: REASON FOR ENDING: OBSERVATION: CONCLUSION: GLENN PROTOCOL NUC ETT. NO CP. FELT LIGHTHEADED IMMMEDIATELY IN RECOVERY. PT WAS ALS O SOB.Maximum XH=407 % Max HR Achieved=89.0% Maximum XE=982/80 Total Exercise Time=4:03 COMMENTS: Patient exercised using the Glenn protocol. No electrocardiographic changes were seen to suggest ischemia. Hemodynamic response to exercise was normal. No significant arrhythmia was prese nt. Nuclear imaging pending
[2016-12-15] MEDS: ACETAMINOPHEN/HYDROcodone 325 MG/7.5 MG TAB PO PRN (17:17)
[2017-01-21] MEDS ORDERED: FLUO20CA4 PO (16:35)
[2017-02-22] MEDS ORDERED: ATOR20TA15 PO (13:10)
[2017-02-22] MEDS ORDERED: GLIP5TAB8 PO (13:12)
[2017-03-10] MEDS ORDERED: AMLO10TA2 PO (15:25)
[2017-03-29] MEDS ORDERED: HYDR25TA5 PO (13:38)
[2017-03-30] MEDS ORDERED: COZA50TA PO (08:47)
== END 2016-12-15 18:21 | disposition home or self-care (01) ==
LOC: NEPC 11:39 → NEDA 13:38 → NEPGCP 14:38 → HCIS 12-15 16:22
PROVIDERS: ADMIT Internal Medicine Cardiovascular Disease; ATTEND Internal Medicine Cardiovascular Disease
DX: I25.110 Atherosclerotic heart disease of native coronary artery with unstable angina pectoris (principal); R06.02 Shortness of breath; R61 Generalized hyperhidrosis; G47.33 Obstructive sleep apnea (adult) (pediatric); I10 Essential (primary) hypertension; E11.9 Type 2 diabetes mellitus without complications; E66.9 Obesity, unspecified; Z79.899 Other long term (current) drug therapy; Z79.84 Long term (current) use of oral hypoglycemic drugs; E78.5 Hyperlipidemia, unspecified; E87.6 Hypokalemia; G43.909 Migraine, unspecified, not intractable, without status migrainosus
CPT/HCPCS: 78452; 80053; 82550; 82552; 82948; 83690; 83735; 84484; 85025; 85610; 85730; 93005; 93017; 93458; 99285; A9502; C1769; C1893; C9113; G0378; J1644; J2250; J3010; J7030; Q9967

== ENCOUNTER → 2017-09-20 | Outpatient (CLI) | payer OTHER ==
[~2017-09-20] MED LIST changes: -1-ME1LIQ PO; +AMLO10TA2 PO; +CETI-1 PO; +DESO0.053 TOPICAL; +FLUO20CA4 PO; +TEMA30CA PO; -TRAM-492 PO
[2017-09-20 11:14] LABS: AUTOMATED NEUTROPHIL # 5.7 TH/MM3 (1.8-7.7); BASOPHIL % 0.3 % (0.0-2.0); EOSINOPHIL # 0.3 TH/MM3 (0-0.4); HEMATOCRIT 32.9 % (35.0-46.0); HEMO FLAGS DIFF FINAL; LYMPH % 27.6 % (9.0-44.0); LYMPHOCYTE # 2.4 TH/MM3 (1.0-4.8); MEAN CELL VOLUME 83.7 FL (80.0-100.0); MEAN CORPUSCULAR HEMOGLOBIN 28.3 PG (27.0-34.0); MEAN CORPUSCULAR HGB CONC 33.9 % (32.0-36.0); NEUT % 63.1 % (16.0-70.0); PLATELET COUNT 236 TH/MM3 (150-450); RED BLOOD COUNT 3.93 MIL/MM3 (4.00-5.30); RED CELL DISTRIBUTION WIDTH 13.9 % (11.6-17.2); WHITE BLOOD COUNT 8.9 TH/MM3 (4.0-11.0)
--- NOTE | 2017-09-20 22:10 | EKG ---
Date Performed: 09/20/2017 Time Performed: 11:17:32 PTAGE: 52 years EKG: Sinus rhythm NORMAL ECG PREVIOUS TRACING : 12/14/2016 18.41 Compared to prior tracing no significant change DOCTOR: Juanito Hope Interpretating Date/Time 09/20/2017 22:10:05
== END ==
LOC: PHPRE 10:46
PROVIDERS: ATTEND Orthopaedic Surgery
DX: Z01.810 Encounter for preprocedural cardiovascular examination (principal); Z01.812 Encounter for preprocedural laboratory examination; M75.41 Impingement syndrome of right shoulder
CPT/HCPCS: 36415; 85025; 93005

== ENCOUNTER → 2017-09-30 | Day surgery (SDC) | payer OTHER ==
[~2017-09-30] VITALS: Ht 165.1 cm; Wt 100.0 kg
[~2017-09-30] MED LIST changes: +ACETAMINOPHEN 1000 MG/100 ML 100 ML IV ONE; +BUPIVACAINE/EPINEPHRINE 0.5% PF 30 ML VIAL ONE; +CHLORHEXIDINE GLUCONATE 2 % 1 PACK (2 CLOTHS) TOPICAL PRN; +CHLORHEXIDINE GLUCONATE 4% SOLN 120 ML BTL TOPICAL SCH; +DEXAMETHASONE SOD PHOS 4 MG/ML VIAL ONE; +FAMOTIDINE 20 MG/2 ML VIAL ONE; -FLUO20CA4 PO; +INSULIN HUMAN REGULAR 1,000 UNITS/10 ML VIAL SQ PRN; +LACTATED RINGER'S 1000 ML IV PRN; +METOPROLOL TARTRATE 25 MG TAB PO PRN; +MIDAZOLAM HCL 2 MG/2 ML VIAL ONE; +POVIDONE IODINE 5% (ANTISEPSIS KIT) 4 APPLICATIONS EACH NARE PRN; +SODIUM CHLOR 0.9% 250 ML INJ 250 ML ONE; +SODIUM CHLORID 0.9% 500 ML IV PRN; +SUGAMMADEX SODIUM 200 MG/2 ML VIAL IV PUSH ONE; +VANCOMYCIN HCL 1000 MG VIAL ONE; +ceFAZolin 2 GM PREMIX 50 ML IV SCH
[2017-09-30 06:47] VITALS: PULSE 80
[2017-09-30 07:30] VITALS: PULSE 76
[2017-09-30 11:45] VITALS: BP 99/57; PULSE 69; RESP 16; TEMP 98.1; O2SAT 97
--- NOTE | 2017-09-30 18:10 | MP ---
cc: TOBY VERA M.D. DATE OF SURGERY: 09/30/2017 SURGEON: Toby Vera MD. PREOPERATIVE DIAGNOSIS: Impingement syndrome of the right shoulder. POSTOPERATIVE DIAGNOSIS Impingement syndrome right shoulder with chronic tearing of the rotator cuff. PROCEDURE 1. Anterior decompression with partial acromioplasty and excision of coracoacromial ligament and 2. Repair chronic rotator cuff tear. PROCEDURE IN DETAIL The patient was placed on the operating table in the supine position and adequate general anesthesia was administered by the anesthesiologist. The patient was then transferred into the modified beach-chair position and the right shoulder padded and then prepped and draped in the usual sterile fashion. Prior to incision a time-out was called and the patient's name procedure, location, etc. were fully confirmed. A 1-inch incision was made over the acromial process and taken down to the subcutaneous tissues. Bleeding points were electrocauterized. Deep fascia was incised and the deltoid muscle insertion transected with electrocautery placing a blunt retractor underneath it to will avoid any injury to the underlying structures. The coracoacromial ligament was identified and found to be extremely thickened and in fact partially adhered to the underlying rotator cuff. It was freed and then excised and relieving that impingement. The rotator cuff was not yet fully visible and the acromionectomy was performed utilizing a high-speed power bur. The rotator cuff was better visualized and did show chronic fraying and tearing of the supraspinatus. This was then debrided and repaired with interrupted sutures of #2 FiberWire. After thorough irrigation the deltoid muscle was repaired with interrupted sutures of the same #2 FiberWire the skin. The subcutaneous tissue was closed with running simple 3-0 Vicryl and the skin edges and skin edges approximated with a running for subcuticular Vicryl. Sponge count, needle counts were counts were reported correct x2. The estimated blood loss was less than 25 mL. This procedure was tolerated well. The patient was transferred to the recovery room in satisfactory condition. Toby Vera MD [facility]/ /9:06 AM /6:01 PM
== END | disposition home or self-care (01) ==
LOC: PHSDC 06:10
PROVIDERS: ATTEND Orthopaedic Surgery
DX: M75.101 Unspecified rotator cuff tear or rupture of right shoulder, not specified as traumatic (principal); M75.41 Impingement syndrome of right shoulder; I10 Essential (primary) hypertension
CPT/HCPCS: 01610; 23420; 64415; J0131; J0690; J1100; J2250; J3370; J7050; J7120

== ENCOUNTER 2017-12-15 00:13 | Emergency (ER) | payer OTHER ==
[~2017-12-15] VITALS: Ht 165.1 cm; Wt 95.3 kg
[~2017-12-15 00:13] MED LIST changes: -ACETAMINOPHEN 1000 MG/100 ML 100 ML IV ONE; -BUPIVACAINE/EPINEPHRINE 0.5% PF 30 ML VIAL ONE; -CHLORHEXIDINE GLUCONATE 2 % 1 PACK (2 CLOTHS) TOPICAL PRN; -CHLORHEXIDINE GLUCONATE 4% SOLN 120 ML BTL TOPICAL SCH; -DEXAMETHASONE SOD PHOS 4 MG/ML VIAL ONE; -FAMOTIDINE 20 MG/2 ML VIAL ONE; -INSULIN HUMAN REGULAR 1,000 UNITS/10 ML VIAL SQ PRN; -LACTATED RINGER'S 1000 ML IV PRN; -METOPROLOL TARTRATE 25 MG TAB PO PRN; -MIDAZOLAM HCL 2 MG/2 ML VIAL ONE; -POVIDONE IODINE 5% (ANTISEPSIS KIT) 4 APPLICATIONS EACH NARE PRN; -SODIUM CHLOR 0.9% 250 ML INJ 250 ML ONE; -SODIUM CHLORID 0.9% 500 ML IV PRN; -SUGAMMADEX SODIUM 200 MG/2 ML VIAL IV PUSH ONE; -VANCOMYCIN HCL 1000 MG VIAL ONE; -ZYRT10CA PO; -ceFAZolin 2 GM PREMIX 50 ML IV SCH
[2017-12-15 00:35] VITALS: BP 120/60; PULSE 93; RESP 15; TEMP 98.6; O2SAT 100
[2017-12-15 02:15] LABS: BILIRUBIN, URINE NEG (NEG); BLOOD, URINE NEG (NEG); GLUCOSE,URINE 1000 OR GREATER mg/dL (NEG); KETONE, URINE NEG (NEG); NITRITE,URINE NEG (NEG); PH, URINE 5.5 (5.0-8.5); URINE LEUKOCYTE ESTERASE NEG (NEG)
[2017-12-15 02:17] LABS: BASOPHIL % 0.2 % (0.0-2.0); EOSINOPHIL # 0.2 TH/MM3 (0-0.4); EOSINOPHIL % 3.2 % (0.0-4.0); HEMATOCRIT 35.2 % (35.0-46.0); HEMOGLOBIN 11.4 GM/DL (11.6-15.3); LYMPH % 31.5 % (9.0-44.0); LYMPHOCYTE # 2.2 TH/MM3 (1.0-4.8); MEAN CELL VOLUME 84.6 FL (80.0-100.0); MEAN CORPUSCULAR HEMOGLOBIN 27.3 PG (27.0-34.0); MEAN CORPUSCULAR HGB CONC 32.3 % (32.0-36.0); MEAN PLATELET VOLUME 12.2 FL (7.0-11.0); MONO % 7.6 % (0.0-8.0); MONOCYTE # 0.5 TH/MM3 (0-0.9); NEUT % 57.5 % (16.0-70.0); PLATELET COUNT 158 TH/MM3 (150-450); RED BLOOD COUNT 4.17 MIL/MM3 (4.00-5.30); RED CELL DISTRIBUTION WIDTH 13.7 % (11.6-17.2); WHITE BLOOD COUNT 6.9 TH/MM3 (4.0-11.0)
[2017-12-15 02:20] LABS: URINE COLOR YELLOW (YELLW/STRAW)
[2017-12-15 02:21] LABS: BACTERIA, URINE RARE /hpf; RBC, URINE 0-2 /hpf (0-3); SQUAMOUS EPITHELIAL CELL URINE 0-5 /hpf (0-5); WBC, URINE 0-2 /hpf (0-5)
--- NOTE | 2017-12-15 02:22 | PD ---
HPI Chief Complaint: Respiratory Symptoms Time Seen by Provider: 01:13 Travel History International Travel<30 days: No Contact w/Intl Traveler<30days: No Traveled to known affect area: No History of Present Illness HPI The patient is a 52-year-old female who complains of nausea, vomiting for about 7 days. She also has diarrhea. She does feel dehydrated. She denies any fever. She does have a history of asthma but states her asthma is not bothering her at this time. She denies any blood in the vomitus or stool. She has had a cholecystectomy but still has her appendix. PFSH Past Medical History Arthritis: No Asthma: Yes Autoimmune Disease: No Blood Disorders: No Anxiety: No Depression: No Heart Rhythm Problems: No Cancer: No Cardiac Catheterization: Yes Cardiovascular Problems: Yes (HTN) High Cholesterol: Yes Congestive Heart Failure: No COPD: No Cerebrovascular Accident: No Diabetes: Yes Patient Takes Glucophage: No Diminished Hearing: No Endocrine: No Gastrointestinal Disorders: No GERD: No Glaucoma: No Genitourinary: No Headaches: No Hepatitis: No Hiatal Hernia: No Hypertension: Yes Immune Disorder: No Musculoskeletal: Yes (CURRENT KNEE ISSUES;RIGHT SHOULDER INJURY) Neurologic: Yes (MIGRAINES) Reproductive: No Respiratory: Yes (SLEEP APNEA) Migraines: Yes Myocardial Infarction: No Seizures: No Sickle Cell Disease: No Sleep Apnea: Yes Thyroid Disease: No Ulcer: No Tetanus Vaccination: < 5 Years Influenza Vaccination: No ?: Not Menopausal: Yes Past Surgical History Abdominal Surgery: Yes (LAP KEE) AICD: No Cardiac Surgery: Yes (HEART CATH (NOTHING FOUND)) Cholecystectomy: Yes Coronary Artery Bypass Graft: No Ear Surgery: No Endocrine Surgery: No Eye Surgery: No Genitourinary Surgery: No Gynecologic Surgery: Yes (hysterectomy) Hysterectomy: Yes Joint Replacement: No Neurologic Surgery: No Oral Surgery: No Pacemaker: No Thoracic Surgery: No Other Surgery: Yes Family History Family Myocardial Infarction: Yes (brother, mother) Social History Alcohol Use: No Tobacco Use: No Substance Use: No Allergies-Medications (Allergen,Severity, Reaction): Coded Allergies: oxycodone (Verified Allergy, Intermediate, HIVES, 12/15/17) lisinopril (Verified Allergy, Mild, Cough, 12/15/17) Reported Meds & Prescriptions Reported Meds & Active Scripts Active Hydrochlorothiazide 25 Mg Tab 25 Mg PO BID Desonide Topical (Desonide) 0.05% Lotn 1 Applic TOPICAL BID Amlodipine (Amlodipine Besylate) 10 Mg Tab 10 Mg PO DAILY Glipizide 5 Mg Tab 5 Mg PO BIDAC Take 30 minutes before a meal Cozaar (Losartan Potassium) 50 Mg Tab 50 Mg PO BID Atorvastatin (Atorvastatin Calcium) 20 Mg Tab 20 Mg PO HS Ventolin Hfa 18 GM Inh (Albuterol Sulfate) 90 Mcg/Act Aer 2 Puff INH Q6H PRN Imitrex (Sumatriptan Succinate) 25 Mg Tab 25 Mg PO ONCE PRN If a satisfactory response has not been obtained at 2 hours, a second dose may be administered Flonase Nasal [place] (Fluticasone Nasal [place]) 50 Mcg/Act [place] 100 Mcg EACH NARE DAILY Reported Zyrtec (Cetirizine HCl) 10 Mg Tablet PO DAILY Temazepam 30 Mg Cap 30 Mg PO HS PRN Potassium Chloride ER (Potassium Chloride) 10 Meq Tab 10 Meq PO DAILY Review of Systems Except as stated in HPI: all other systems reviewed are Neg Physical Exam Narrative GENERAL: The patient is obese, alert, moderately dehydrated appearing in moderate apparent distress with her midline epigastric discomfort. Her vital signs show heart rate of 93 but are otherwise normal. SKIN: Focused skin assessment warm/dry. HEAD: Atraumatic. Normocephalic. EYES: Pupils equal and round. No scleral icterus. No injection or drainage. ENT: No nasal bleeding or discharge. Mucous membranes pink and slightly dry. NECK: Trachea midline. No JVD. CARDIOVASCULAR: Regular rate and rhythm. No murmur appreciated. RESPIRATORY: No accessory muscle use. Clear to auscultation. Breath sounds equal bilaterally. GASTROINTESTINAL: Abdomen soft, with tenderness to direct palpation in the midline epigastrium, nondistended. Hepatic and splenic margins not palpable. No guarding or rebound is present. MUSCULOSKELETAL: No obvious deformities. No clubbing. No cyanosis. No edema. NEUROLOGICAL: Awake and alert. No obvious cranial nerve deficits. Motor grossly within normal limits. Normal speech. PSYCHIATRIC: Appropriate mood and affect; insight and judgment normal. Data Data Last Documented VS Vital Signs Date Time Temp Pulse Resp B/P (MAP) Pulse Ox O2 Delivery O2 Flow Rate FiO2 12/15/17 04:16 98.1 75 18 124/72 (89) 100 Room Air Orders Orders Complete Blood Count With Diff (12/15/17 02:00) Basic Metabolic Panel (Bmp) (12/15/17 02:00) Lipase (12/15/17 02:00) Urinalysis - C+S If Indicated (12/15/17 02:00) Sodium Chlor 0.9% 1000 Ml Inj (Ns 1000 M (12/15/17 02:30) Ondansetron Inj (Zofran Inj) (12/15/17 02:30) Insulin Human Regular Inj (Novolin R Inj (12/15/17 03:30) Insulin Human Regular Inj (Novolin R Inj (12/15/17 04:45) Ketorolac Inj (Toradol Inj) (12/15/17 04:45) Orphenadrine Inj (Norflex Inj) (12/15/17 04:45) Ed Discharge Order (12/15/17 04:57) Labs Laboratory Tests Test 12/15/17 02:07 White Blood Count 6.9 TH/MM3 Red Blood Count 4.17 MIL/MM3 Hemoglobin 11.4 GM/DL Hematocrit 35.2 % Mean Corpuscular Volume 84.6 FL Mean Corpuscular Hemoglobin 27.3 PG Mean Corpuscular Hemoglobin Concent 32.3 % Red Cell Distribution Width 13.7 % Platelet Count 158 TH/MM3 Mean Platelet Volume 12.2 FL Neutrophils (%) (Auto) 57.5 % Lymphocytes (%) (Auto) 31.5 % Monocytes (%) (Auto) 7.6 % Eosinophils (%) (Auto) 3.2 % Basophils (%) (Auto) 0.2 % Neutrophils # (Auto) 4.0 TH/MM3 Lymphocytes # (Auto) 2.2 TH/MM3 Monocytes # (Auto) 0.5 TH/MM3 Eosinophils # (Auto) 0.2 TH/MM3 Basophils # (Auto) 0.0 TH/MM3 CBC Comment DIFF FINAL Differential Comment Urine Color YELLOW Urine Turbidity CLEAR Urine pH 5.5 Urine Specific [place] 1.034 Urine Protein NEG mg/dL Urine Glucose (UA) 1000 OR GREATER mg/dL Urine Ketones NEG mg/dL Urine Occult Blood NEG Urine Nitrite NEG Urine Bilirubin NEG Urine Leukocyte Esterase NEG Urine RBC 0-2 /hpf Urine WBC 0-2 /hpf Urine Squamous Epithelial Cells 0-5 /hpf Urine Bacteria RARE /hpf Microscopic Urinalysis Comment CULT NOT INDICATED Blood Urea Nitrogen 18 MG/DL Creatinine 1.90 MG/DL Random Glucose 687 MG/DL Calcium Level 9.5 MG/DL Sodium Level 127 MEQ/L Potassium Level 3.4 MEQ/L Chloride Level 84 MEQ/L Carbon Dioxide Level 32.3 MEQ/L Anion Gap 11 MEQ/L Estimat Glomerular Filtration Rate 33 ML/MIN Lipase 119 U/L MDM Medical Decision Making Medical Screen Exam Complete: Yes Emergency Medical Condition: Yes Medical Record Reviewed: Yes Interpretation(s) The CBC is normal except for hemoglobin of 11.4. The basic metabolic profile shows a sodium of 127, potassium 3.4, bicarb of 32.3 with creatinine 1.9 and GFR of 33 and glucose of 687. The lipase is normal. The calcium is normal. The anion gap is normal. The urinalysis is normal except for 1000 or greater glucose and culture is not indicated. Differential Diagnosis Diabetes mellitus poor control, infection urine, other infection, electrolyte disorder, diabetic gastroparesis Narrative Course The patient strongly wants to go home. She has an appointment with her primary care physician later on today. She will be given a two day work excuse. She was told that we initially wanted to admit her but she can go home as long as she sees her primary care physician today. It is now 0500 in the morning and the patient feels much better and wants to go home. Impression: Diabetes mellitus poor control Diagnosis Primary Impression: Poorly controlled diabetes mellitus Additional Instructions: As we discussed, follow-up with your primary care physician today as scheduled. We gave you the laboratory work, please take it to him. Disposition: 01 DISCHARGE HOME Condition: Stable Willam Molina MD Dec 15, 2017 02:22
[2017-12-15 02:26] LABS: BICARBONATE 32.3 MEQ/L (21.0-32.0); CALCIUM 9.5 MG/DL (8.5-10.1)
[2017-12-15 02:29] LABS: CREATININE 1.9 MG/DL (0.50-1.00)
[2017-12-15] MEDS ORDERED: ONDANSETRON HCL 4 MG/2 ML VIAL IV ONE (02:30)
[2017-12-15] MEDS: SODIUM CHLOR 0.9% 1000 ML INJ 1,000 ML IV SCH ×2 (02:35→02:37)
[2017-12-15] MEDS ORDERED: INSULIN HUMAN REGULAR 1,000 UNITS/10 ML VIAL IV PUSH ONE ×2 (03:30→04:45)
[2017-12-15 04:16] VITALS: BP 124/72; PULSE 75; RESP 18; TEMP 98.1; O2SAT 100
[2017-12-15] MEDS ORDERED: ORPHENADRINE INJ 60 MG/2 ML AMP IM ONE (04:45)
[2017-12-15] MEDS ORDERED: KETOROLAC TROMETHAMINE 60 MG/2 ML (IM) VIAL IM ONE (04:45)
[2017-12-15 05:23] VITALS: BP 129/85; TEMP 98.2
== END 2017-12-15 05:25 | disposition home or self-care (01) ==
LOC: PHED 00:13
DX: E11.65 Type 2 diabetes mellitus with hyperglycemia (principal); J45.909 Unspecified asthma, uncomplicated; I10 Essential (primary) hypertension; E78.00 Pure hypercholesterolemia, unspecified; Z88.5 Allergy status to narcotic agent; Z88.8 Allergy status to other drugs, medicaments and biological substances
CPT/HCPCS: 80048; 81001; 83690; 85025; 96361; 96374; 96375; 96376; 99284; J1815; J2405; J7030

== ENCOUNTER 2017-12-28 15:17 | Inpatient (IN) | payer OTHER ==
[~2017-12-28] VITALS: Ht 165.1 cm; Wt 90.0 kg
[2017-12-28] MEDS ORDERED: SODIUM CHLOR 0.9% 1000 ML INJ 1,000 ML IV ONE ×2 (15:21→17:00)
[2017-12-28 15:29] VITALS: BP 174/94; PULSE 89; RESP 22; TEMP 98.8; O2SAT 100
[2017-12-28] MEDS ORDERED: SODIUM CHLORIDE 0.9% FLUSH 10 ML FLUSH IVF PRN (15:30)
[2017-12-28 15:49] LABS: HEMOGLOBIN 11.7 GM/DL (11.6-15.3); MEAN CELL VOLUME 83.1 FL (80.0-100.0); MEAN CORPUSCULAR HEMOGLOBIN 28.7 PG (27.0-34.0); MEAN CORPUSCULAR HGB CONC 34.5 % (32.0-36.0); WHITE BLOOD COUNT 9.5 TH/MM3 (4.0-11.0)
[2017-12-28 15:50] LABS: AUTOMATED NEUTROPHIL # 4.4 TH/MM3 (1.8-7.7); BASOPHIL # 0.1 TH/MM3 (0-0.2); BASOPHIL % 0.7 % (0.0-2.0); EOSINOPHIL # 0.3 TH/MM3 (0-0.4); EOSINOPHIL % 3.2 % (0.0-4.0); LYMPH % 43.5 % (9.0-44.0); LYMPHOCYTE # 4.1 TH/MM3 (1.0-4.8); MEAN PLATELET VOLUME 10.5 FL (7.0-11.0); MONO % 6.5 % (0.0-8.0); MONOCYTE # 0.6 TH/MM3 (0-0.9); NEUT % 46.1 % (16.0-70.0); PLATELET COUNT 184 TH/MM3 (150-450); RED CELL DISTRIBUTION WIDTH 14.6 % (11.6-17.2)
--- NOTE | 2017-12-28 15:58 | RADRPT ---
EXAM DATE/TIME: 12/28/2017 15:47 [place] COMPARISON: No previous studies available for comparison. INDICATIONS : Head pain due to fall. RADIATION DOSE: 38.13 CTDIvol (mGy) MEDICAL HISTORY : Diabetes mellitus type 2. Hypertension. Hypercholesterolemia. SURGICAL HISTORY : Hysterectomy. ENCOUNTER: Initial ACUITY: 1 day PAIN SCALE: 3/10 LOCATION: Bilateral cranial TECHNIQUE: Multiple contiguous axial images were obtained of the head. Using automated exposure control and adj ustment of the mA and/or kV according to patient size, radiation dose was kept as low as reasonably a chievable to obtain optimal diagnostic quality images. DICOM format image data is available electro nically for review and comparison. FINDINGS: CEREBRUM: The ventricles are normal for age. No evidence of midline shift, mass lesion, hemorrhage or acute in farction. No extra-axial fluid collections are seen. POSTERIOR FOSSA: The cerebellum and brainstem are intact. The 4th ventricle is midline. The cerebellopontine angle i s unremarkable. EXTRACRANIAL: The visualized portion of the orbits is intact. SKULL: The calvaria is intact. No evidence of skull fracture. CONCLUSION: 1. No acute intracranial abnormality. Jose Narayan MD on December 28, 2017 at 15:53 Board Certified Radiologist. This report was verified electronically.
[2017-12-28 16:00] LABS: PROTHROMBIN TIME - PATIENT 10.4 SEC (9.8-11.6)
[2017-12-28] MEDS ORDERED: METF500T PO (16:02)
[2017-12-28 16:03] VITALS: BP 144/83; PULSE 79; RESP 16; O2SAT 100
--- NOTE | 2017-12-28 16:03 | PD ---
HPI Chief Complaint: Fall Time Seen by Provider: 15:27 Travel History International Travel<30 days: No Contact w/Intl Traveler<30days: No Traveled to known affect area: No History of Present Illness HPI Patient is a 52-year-old female presented to the emergency department after having a syncopal episode. Patient was at work when she heard a loud thud, she then had a syncopal episode and was found by her to coworkers. Patient has amnesia regarding the events just prior to and during the fall. She was found on the floor. Patient is drowsy and confused, when she is awake she is alert and oriented 3. She denied any chest pain, shortness of breath, abdominal pain. Patient's glipizide was just increased and metformin was added to her diabetic regimen. Symptom onset was sudden, symptom severity is moderate, there are no alleviating factors. PFSH Past Medical History Asthma: Yes Cardiac Catheterization: Yes High Cholesterol: Yes Diabetes: Yes Patient Takes Glucophage: Yes Hypertension: Yes Musculoskeletal: Yes (CURRENT KNEE ISSUES;RIGHT SHOULDER INJURY) Reproductive: No Migraines: Yes Myocardial Infarction: No Seizures: No Sickle Cell Disease: No Sleep Apnea: Yes (CPAP ) Thyroid Disease: No Ulcer: No ?: Not Menopausal: Yes Past Surgical History Abdominal Surgery: Yes (LAP KEE) AICD: No Cardiac Surgery: Yes (HEART CATH (NOTHING FOUND)) Cholecystectomy: Yes Coronary Artery Bypass Graft: No Ear Surgery: No Endocrine Surgery: No Eye Surgery: No Genitourinary Surgery: No Gynecologic Surgery: Yes (hysterectomy) Hysterectomy: Yes Joint Replacement: No Neurologic Surgery: No Oral Surgery: No Pacemaker: No Thoracic Surgery: No Other Surgery: Yes Family History Family Myocardial Infarction: Yes (brother, mother) Social History Alcohol Use: No Tobacco Use: No Substance Use: No Allergies-Medications (Allergen,Severity, Reaction): Coded Allergies: oxycodone (Verified Allergy, Intermediate, HIVES, 12/15/17) lisinopril (Verified Allergy, Mild, Cough, 12/15/17) Reported Meds & Prescriptions Reported Meds & Active Scripts Active Hydrochlorothiazide 25 Mg Tab 25 Mg PO BID Desonide Topical (Desonide) 0.05% Lotn 1 Applic TOPICAL BID Amlodipine (Amlodipine Besylate) 10 Mg Tab 10 Mg PO DAILY Glipizide 5 Mg Tab 5 Mg PO BIDAC Take 30 minutes before a meal Cozaar (Losartan Potassium) 50 Mg Tab 50 Mg PO BID Atorvastatin (Atorvastatin Calcium) 20 Mg Tab 20 Mg PO HS Ventolin Hfa 18 GM Inh (Albuterol Sulfate) 90 Mcg/Act Aer 2 Puff INH Q6H PRN Flonase Nasal Dalton (Fluticasone Nasal Dalton) 50 Mcg/Act Dalton 100 Mcg EACH NARE DAILY Reported Metformin (Metformin HCl) 500 Mg Tab 500 Mg PO DAILY With a meal Zyrtec (Cetirizine HCl) 10 Mg Tablet PO DAILY Temazepam 30 Mg Cap 30 Mg PO HS PRN Potassium Chloride ER (Potassium Chloride) 10 Meq Tab 10 Meq PO DAILY Review of Systems ROS Limitations: Poor Historian Except as stated in HPI: all other systems reviewed are Neg HENT: Positive: Neck Pain Neurologic: Positive: Syncope, Change in Mentation Physical Exam Narrative GENERAL: Well-developed, well-nourished, drowsy -[place] female. Presenting in no acute distress. SKIN: Warm and dry. HEAD: Atraumatic. Normocephalic. EYES: Pupils equal and round. No scleral icterus. No injection or drainage. Extraocular movements are intact. ENT: No nasal bleeding or discharge. Mucous membranes pink and moist. NECK: Trachea midline. No JVD. CARDIOVASCULAR: Regular rate and rhythm. RESPIRATORY: No accessory muscle use. Clear to auscultation. Breath sounds equal bilaterally. GASTROINTESTINAL: Abdomen soft, non-tender, nondistended. Hepatic and splenic margins not palpable. MUSCULOSKELETAL: Extremities without clubbing, cyanosis, or edema. No obvious deformities. NEUROLOGICAL: Drowsy but arousable, oriented 3. No obvious cranial nerve deficits. Motor grossly within normal limits. Five out of 5 muscle strength in the arms and legs. Normal speech. PSYCHIATRIC: Appropriate mood and affect; insight and judgment normal. Data Data Last Documented VS Vital Signs Date Time Temp Pulse Resp B/P (MAP) Pulse Ox O2 Delivery O2 Flow Rate FiO2 12/28/17 16:03 79 16 144/83 (103) 100 Nasal Cannula 2.00 12/28/17 15:29 98.8 Orders Orders Electrocardiogram (12/28/17 15:21) Complete Blood Count With Diff (12/28/17 15:21) Comprehensive Metabolic Panel (12/28/17 15:21) Magnesium (Mg) (12/28/17 15:21) Ckmb (Isoenzyme) Profile (12/28/17 15:21) Troponin I (12/28/17 15:21) Act Partial Throm Time (Ptt) (12/28/17 15:) Prothrombin Time / Inr (Pt) (12/28/17 15:) Urinalysis - C+S If Indicated (12/28/17 15:21) Ct Brain W/O Iv Contrast(Rout) (12/28/17 15:21) Ecg Monitoring (12/28/17 15:) Iv Access Insert/Monitor (12/28/17 15:) Oximetry (12/28/17 15:) Sodium Chloride 0.9% Flush (Ns Flush) (12/28/17 15:30) Sodium Chlor 0.9% 1000 Ml Inj (Ns 1000 M (12/28/17 15:21) Ct Cerv Spine W/O Contrast (12/28/17 ) CKMB (12/28/17 15:26) CKMB% (12/28/17 15:) Sodium Chlor 0.9% 1000 Ml Inj (Ns 1000 M (12/28/17 17:00) Admit Order (Ed Use Only) (12/28/17 17:30) Labs Laboratory Tests Test 12/28/17 15:26 White Blood Count 9.5 TH/MM3 Red Blood Count 4.10 MIL/MM3 Hemoglobin 11.7 GM/DL Hematocrit 34.0 % Mean Corpuscular Volume 83.1 FL Mean Corpuscular Hemoglobin 28.7 PG Mean Corpuscular Hemoglobin Concent 34.5 % Red Cell Distribution Width 14.6 % Platelet Count 184 TH/MM3 Mean Platelet Volume 10.5 FL Neutrophils (%) (Auto) 46.1 % Lymphocytes (%) (Auto) 43.5 % Monocytes (%) (Auto) 6.5 % Eosinophils (%) (Auto) 3.2 % Basophils (%) (Auto) 0.7 % Neutrophils # (Auto) 4.4 TH/MM3 Lymphocytes # (Auto) 4.1 TH/MM3 Monocytes # (Auto) 0.6 TH/MM3 Eosinophils # (Auto) 0.3 TH/MM3 Basophils # (Auto) 0.1 TH/MM3 CBC Comment DIFF FINAL Differential Comment Prothrombin Time 10.4 SEC Prothromb Time International Ratio 1.0 RATIO Activated Partial Thromboplast Time 24.0 SEC Blood Urea Nitrogen 33 MG/DL Creatinine 1.70 MG/DL Random Glucose 401 MG/DL Total Protein 8.6 GM/DL Albumin 4.1 GM/DL Calcium Level 9.2 MG/DL Magnesium Level 1.3 MG/DL Alkaline Phosphatase 111 U/L Aspartate Amino Transf (AST/SGOT) 57 U/L Alanine Aminotransferase (ALT/SGPT) 60 U/L Total Bilirubin 0.4 MG/DL Sodium Level 159 MEQ/L Potassium Level 4.3 MEQ/L Chloride Level 120 MEQ/L Carbon Dioxide Level 25.8 MEQ/L Anion Gap 13 MEQ/L Estimat Glomerular Filtration Rate 38 ML/MIN Total Creatine Kinase 309 U/L Creatine Kinase MB 2.0 NG/ML Creatine Kinase MB % 0.6 % Troponin I LESS THAN 0.02 NG/ML MDM Medical Decision Making Medical Screen Exam Complete: Yes Emergency Medical Condition: Yes Interpretation(s) Laboratory Tests Test 12/28/17 15:26 12/28/17 17:16 White Blood Count 9.5 TH/MM3 Red Blood Count 4.10 MIL/MM3 Hemoglobin 11.7 GM/DL Hematocrit 34.0 % Mean Corpuscular Volume 83.1 FL Mean Corpuscular Hemoglobin 28.7 PG Mean Corpuscular Hemoglobin Concent 34.5 % Red Cell Distribution Width 14.6 % Platelet Count 184 TH/MM3 Mean Platelet Volume 10.5 FL Neutrophils (%) (Auto) 46.1 % Lymphocytes (%) (Auto) 43.5 % Monocytes (%) (Auto) 6.5 % Eosinophils (%) (Auto) 3.2 % Basophils (%) (Auto) 0.7 % Neutrophils # (Auto) 4.4 TH/MM3 Lymphocytes # (Auto) 4.1 TH/MM3 Monocytes # (Auto) 0.6 TH/MM3 Eosinophils # (Auto) 0.3 TH/MM3 Basophils # (Auto) 0.1 TH/MM3 CBC Comment DIFF FINAL Differential Comment Prothrombin Time 10.4 SEC Prothromb Time International Ratio 1.0 RATIO Activated Partial Thromboplast Time 24.0 SEC Blood Urea Nitrogen 33 MG/DL Creatinine 1.70 MG/DL Random Glucose 401 MG/DL Total Protein 8.6 GM/DL Albumin 4.1 GM/DL Calcium Level 9.2 MG/DL Magnesium Level 1.3 MG/DL Alkaline Phosphatase 111 U/L Aspartate Amino Transf (AST/SGOT) 57 U/L Alanine Aminotransferase (ALT/SGPT) 60 U/L Total Bilirubin 0.4 MG/DL Sodium Level 159 MEQ/L Potassium Level 4.3 MEQ/L Chloride Level 120 MEQ/L Carbon Dioxide Level 25.8 MEQ/L Anion Gap 13 MEQ/L Estimat Glomerular Filtration Rate 38 ML/MIN Total Creatine Kinase 309 U/L Creatine Kinase MB 2.0 NG/ML Creatine Kinase MB % 0.6 % Troponin I LESS THAN 0.02 NG/ML Vital Signs Date Time Temp Pulse Resp B/P (MAP) Pulse Ox O2 Delivery O2 Flow Rate FiO2 12/28/17 15:29 98.8 89 22 174/94 (120) 100 Room Air Differential Diagnosis CVA versus contusion versus concussion versus hemorrhage versus metabolic abnormality versus cardiac arrhythmia versus other Narrative Course Patient is a 52-year-old female that presented to the emergency department after having a syncopal episode. Patient's vital signs are stable, she is drowsy but arousable. Initial EKG shows sinus rhythm with a rate of 96. CT scan and labs ordered and pending. CBC with no acute findings Chemistry with a sodium of 159, BUN and creatinine elevated at 33/1.70, mild transaminitis, CK is 309, cardiac enzymes are negative [address] shows no acute intracranial abnormality CT of the cervical spine shows no acute fracture or prevertebral soft tissue swelling. Mild to moderate spinal stenosis at C5-C6 predominantly related to diffuse disc osteophyte complex. Reversal of the normal cervical lordosis at C5 -C6. Patient was given a total of 2 L of IV fluids, discussed findings with her, she appears more alert at this time and on initial presentation. Patient is agreeable to stay. Discussed with residents who accepted admit for Dr. Molina. Admit orders placed. Diagnosis Primary Impression: Hypernatremia Additional Impressions: Acute renal failure Qualified Codes: N17.9 - Acute kidney failure, unspecified Syncope Qualified Codes: R55 - Syncope and collapse Contusion of head Qualified Codes: S00.93XA - Contusion of unspecified part of head, initial encounter Admitting Information Admitting Physician Requests: Admit Condition: Stable Juliann Donahue Dec 28, 2017 16:03
--- NOTE | 2017-12-28 16:09 | RADRPT ---
EXAM DATE/TIME: 12/28/2017 15:47 [facility] COMPARISON: No previous studies available for comparison. INDICATIONS : Neck pain due to fall. RADIATION DOSE: 28.05 CTDIvol (mGy) MEDICAL HISTORY : Hypertension. Diabetes mellitus type 2. Hypercholesterolemia. SURGICAL HISTORY : Hysterectomy. ENCOUNTER: Initial ACUITY: 1 day PAIN SCALE: 3/10 LOCATION: Bilateral neck region. TECHNIQUE: Volumetric scanning of the cervical spine was performed. Multiplanar reconstructions in the sagittal, coronal and oblique axial planes were performed. Using automated exposure control and adjustment o f the mA and/or kV according to patient size, radiation dose was kept as low as reasonably achievable to obtain optimal diagnostic quality images. DICOM format image data is available electronically f or review and comparison. FINDINGS: VERTEBRAE: Normal vertebral body height. ALIGNMENT: No evidence of subluxation. There is reversal of the normal cervical lordosis. C2-C3: The bony spinal canal is normal in size. No evidence of disc bulge or herniation. The neural forami na are bilaterally patent. C3-C4: The bony spinal canal is normal in size. No evidence of disc bulge or herniation. The neural forami na are bilaterally patent. C4-C5: The bony spinal canal is normal in size. No evidence of disc bulge or herniation. The neural forami na are bilaterally patent. C5-C6: There is a diffuse disc osteophyte complex which results in mild to moderate spinal stenosis at this level. The bilateral neuroforamina are patent. Disc space narrowing is noted. C6-C7: The bony spinal canal is normal in size. No evidence of disc bulge or herniation. The neural forami na are bilaterally patent. C7-T1: The bony spinal canal is normal in size. No evidence of disc bulge or herniation. The neural forami na are bilaterally patent. CONCLUSION: 1. No acute fracture or prevertebral soft tissue swelling. 2. Mild to moderate spinal stenosis at C5-6 predominantly related to diffuse disc osteophyte complex. 3. Reversal of the normal cervical lordosis. 4. Cervical spondylosis at C5-6. Claude Ng MD on December 28, 2017 at 16:03 Board Certified Radiologist. This report was verified electronically.
[2017-12-28 16:29] LABS: ALBUMIN 4.1 GM/DL (3.4-5.0); ALT (GPT) 60 U/L (10-53); AST (GOT) 57 U/L (15-37); BICARBONATE 25.8 MEQ/L (21.0-32.0); BLOOD UREA NITROGEN 33 MG/DL (7-18); CALCIUM 9.2 MG/DL (8.5-10.1); CHLORIDE 120 MEQ/L (98-107); GLOMERULAR FILTRATION RATE 38 ML/MIN (>89); GLUCOSE,RANDOM 401 MG/DL (74-106); MAGNESIUM 1.3 MG/DL (1.5-2.5)
[2017-12-28 16:47] LABS: ALKALINE PHOSPHATASE 111 U/L (45-117); TOTAL BILIRUBIN ADULT 0.4 MG/DL (0.2-1.0); TOTAL PROTEIN 8.6 GM/DL (6.4-8.2); TROPONIN I LESS THAN 0.02 NG/ML (0.02-0.05)
[2017-12-28 16:50] LABS: SODIUM (NA) 159 MEQ/L (136-145)
[2017-12-28 17:48] LABS: BILIRUBIN, URINE NEG (NEG); BLOOD, URINE NEG (NEG); GLUCOSE,URINE 1000 mg/dL (NEG); HYALINE CAST, URINE 1 /lpf (RARE); KETONE, URINE NEG (NEG); MUCUS URINE FEW /lpf (OCC); NITRITE,URINE NEG (NEG); SQUAMOUS EPITHELIAL CELL URINE <1 /hpf (0-5); URINE COLOR LIGHT-YELLOW (YELLW/STRAW); URINE LEUKOCYTE ESTERASE NEG (NEG)
--- NOTE | 2017-12-28 17:59 | HHI.HP ---
[facility] Service Family Medicine Primary Care Physician Sienna Lazaro MD Admission Diagnosis Hyponatremia, syncope, acute renal failure Diagnoses: International Travel<30 Days: No Contact w/Intl Traveler<30days: No Known Affected Area: No History of Present Illness Patient is a 52 y/o F w/hx of poorly controlled DM 2 presenting for fall and syncope. Fell and hit her head earlier this afternoon after tripping on carpeting at work and blacked out. Does not remember what happened after that. Put hands out to brace fall, had impact. Does not know how long she was down for. Her coworkers helped her get up. Feel fine now. No vision change, numbness, tingling , urinary incontinence, no residual weakness or poor balance. Feels a large mass /swelling on her forehead, no bleeding or other injuries. Had a good breakfast , no palpitations or lightheadedness. No previous fall, no previous head trauma. Recently diagnosed diabetes (2 years ago). Sugars have not been well controlled. 2 weeks ago, her PCP increased Glipizide and Metformin due to suspicion of gastroparesis: one month ago, patient started having nausea and vomiting, poor appetite. Prosper ill from food poisoning. Went to the [place] ED and was found to be hyperglycemic with glucose at 687. Creatinine was 1.9. GFR was 33. Patient was hyponatremic and hypokalemic. Was given a bolus of normal saline and insulin, Toradol for pain and discharge because patient felt better Was referred to Dr. Clark by PCP to evaluate for gastroparesis, has an appointment soon. Takes losartan, potassium, HCTZ, and amlodipine for HTN. Takes atorvastatin for HLD. Review of Systems Constitutional: COMPLAINS OF: Weight loss (20-25 lb over a month) Endocrine: COMPLAINS OF: Polydipsia, Polyuria Eyes: COMPLAINS OF: Blurred vision (2 weeks ago) Ears, nose, mouth, throat: DENIES: Hearing loss, Throat pain Respiratory: DENIES: Cough, Shortness of breath Cardiovascular: DENIES: Chest pain, Palpitations, Lower Extremity Edema Gastrointestinal: DENIES: Black stools, Constipation Genitourinary: DENIES: Urinary frequency, Urinary incontinence Musculoskeletal: DENIES: Joint pain, Muscle aches Integumentary: DENIES: Abnormal pigmentation Hematologic/lymphatic: DENIES: Bruising Neurologic: DENIES: Headache, Paresthesias Past Family Social History Past Medical History Diabetes Mellitus HTN HLD sleep apnea - uses CIPAP Past Surgical History Shoulder repair 09/30/2017 Total hysterectomy over 20yrs ago April 2015 Right meniscus repair cholecystectomy Allergies: Coded Allergies: oxycodone (Verified Allergy, Intermediate, HIVES, 12/15/17) lisinopril (Verified Allergy, Mild, Cough, 12/15/17) Family History Mom: heart disease, HTN, and DM2 Dad: aneurysm Social History No drinking or smoking, no recreational or illicit drugs Lives in an apartment alone Physical Exam Vital Signs Vital Signs Date Time Temp Pulse Resp B/P (MAP) Pulse Ox O2 Delivery O2 Flow Rate FiO2 12/28/17 16:03 79 16 144/83 (103) 100 Nasal Cannula 2.00 12/28/17 15:29 98.8 89 22 174/94 (120) 100 Room Air Physical Exam GENERAL: Patient in no acute distress. SKIN: Cool and dry. HEAD: Raised round swelling about 3 in across between brows. Tender to palpation at bridge of nose. No other injury. EYES: Extraocular motions intact. No scleral icterus. ENT: Mucus membranes moist. No oral lesions. NECK: Trachea midline. CARDIOVASCULAR: Regular rate and rhythm without murmurs, gallops, or rubs. RESPIRATORY: Clear to auscultation. GASTROINTESTINAL: Abdomen soft, non-tender, nondistended. MUSCULOSKELETAL: Extremities without clubbing, cyanosis, or edema. NEUROLOGICAL: Awake and alert x3. No focal deficits. Motor and sensory grossly within normal limits. Five out of 5 muscle strength in all muscle groups. Normal speech. Laboratory Laboratory Tests Test 12/28/17 15:26 12/28/17 17:16 White Blood Count 9.5 Red Blood Count 4.10 Hemoglobin 11.7 Hematocrit 34.0 Mean Corpuscular Volume 83.1 Mean Corpuscular Hemoglobin 28.7 Mean Corpuscular Hemoglobin Concent 34.5 Red Cell Distribution Width 14.6 Platelet Count 184 Mean Platelet Volume 10.5 Neutrophils (%) (Auto) 46.1 Lymphocytes (%) (Auto) 43.5 Monocytes (%) (Auto) 6.5 Eosinophils (%) (Auto) 3.2 Basophils (%) (Auto) 0.7 Neutrophils # (Auto) 4.4 Lymphocytes # (Auto) 4.1 Monocytes # (Auto) 0.6 Eosinophils # (Auto) 0.3 Basophils # (Auto) 0.1 CBC Comment DIFF FINAL Differential Comment Prothrombin Time 10.4 Prothromb Time International Ratio 1.0 Activated Partial Thromboplast Time 24.0 Blood Urea Nitrogen 33 Creatinine 1.70 Random Glucose 401 Total Protein 8.6 Albumin 4.1 Calcium Level 9.2 Magnesium Level 1.3 Alkaline Phosphatase 111 Aspartate Amino Transf (AST/SGOT) 57 Alanine Aminotransferase (ALT/SGPT) 60 Total Bilirubin 0.4 Sodium Level 159 Potassium Level 4.3 Chloride Level 120 Carbon Dioxide Level 25.8 Anion Gap 13 Estimat Glomerular Filtration Rate 38 Total Creatine Kinase 309 Creatine Kinase MB 2.0 Creatine Kinase MB % 0.6 Troponin I LESS THAN 0.02 Result Diagram: 12/28/17 1526 12/28/17 1526 Caprinjuliocesar VTE Risk Assessment Collinsrinjuliocesar VTE Risk Assessment: Mod/High Risk (score >= 2) Caprini Risk Assessment Model Point Value = 1 Point Value = 2 Point Value = 3 Point Value = 5 Age 41-60 Minor surgery BMI > 25 kg/m2 Swollen legs Varicose veins or History of unexplained or recurrent spontaneous Oral contraceptives or hormone replacement Sepsis (< 1 month) Serious lung disease, including pneumonia (< 1 month) Abnormal pulmonary function Acute myocardial infarction Congestive heart failure (< 1 month) History of inflammatory bowel disease Medical patient at bed rest Age 61-74 Arthroscopic surgery Major open surgery (> 45 min) Laparoscopic surgery (> 45 min) Malignancy Confined to bed (> 72 hours) Immobilizing plaster cast Central venous access Age >= 75 History of VTE Family history of VTE Factor V Leiden Prothrombin [id number] Lupus anticoagulant Anticardiolipin antibodies Elevated serum homocysteine Heparin-induced thrombocytopenia Other congenital or acquired thrombophilia Stroke (< 1 month) Elective arthroplasty Hip, pelvis, or leg fracture Acute spinal cord injury (< 1 month) Prophylaxis Regimen Total Risk Factor Score Risk Level Prophylaxis Regimen 0-1 Low Early ambulation 2 Moderate Order ONE of the following: *Sequential Compression Device (SCD) *Heparin 5000 units SQ BID 3-4 Higher Order ONE of the following medications: *Heparin 5000 units SQ TID *Enoxaparin/Lovenox 40 mg SQ daily (WT < 150 kg, CrCl > 30 mL/min) *Enoxaparin/Lovenox 30 mg SQ daily (WT < 150 kg, CrCl > 10-29 mL/min) *Enoxaparin/Lovenox 30 mg SQ BID (WT < 150 kg, CrCl > 30 mL/min) AND/OR *Sequential Compression Device (SCD) 5 or more Highest Order ONE of the following medications: *Heparin 5000 units SQ TID (Preferred with Epidurals) *Enoxaparin/Lovenox 40 mg SQ daily (WT < 150 kg, CrCl > 30 mL/min) *Enoxaparin/Lovenox 30 mg SQ daily (WT < 150 kg, CrCl > 10-29 mL/min) *Enoxaparin/Lovenox 30 mg SQ BID (WT < 150 kg, CrCl > 30 mL/min) AND *Sequential Compression Device (SCD) Assessment and Plan Assessment and Plan Patient is a 52-year-old female with history of poorly controlled diabetes mellitus who is admitted for hypernatremia and HANNA. Patient is completely asymptomatic. Initially came to ED after a fall and hitting her head and underwent a workup. CT imaging showed no trauma. Sodium level and glucose levels were found to be elevated, along with BUN/creatinine. Sodium level corrected for hyperglycemia is at 166. She is completely symptomatic. Findings may be secondary to osmotic diuresis from poorly controlled diabetes. Order urine osmolality to rule out diabetes insipidus. We'll slowly replenish electrolytes and provide IV fluids. Will improve diabetic control and continue to monitor. Code Status Full Problem List: (1) Hypernatremia ICD Codes: E87.0 - Hyperosmolality and hypernatremia Status: Acute Plan: Possible history of GI losses, however no recent severe/acute episodes. No recent skin losses Target a change of normal saline no more than 7 mEq over 24 hours to avoid complications (i.e. cerebral edema) Based on calculations, patient would require 2 L of normal saline for 20 hours to achieve this target Plan to slowly replete normal saline via normal saline running at maintenance Check BMP in q6 hours. If no improvement noted, may increase amount of IV fluids running or advance to half normal saline order urine osmolality (2) Acute renal failure ICD Codes: N17.9 - Acute kidney failure, unspecified Status: Acute Plan: BUN and of 33, creatinine of 1.7. Creatinine done on 12/15/17 of this year is at 1.9. IV fluids maintenance Monitor daily CMP for improvement (3) Hyperlipidemia ICD Codes: E78.5 - Hyperlipidemia Status: Acute Plan: Continue atorvastatin (4) Diabetes mellitus type 2 in obese ICD Codes: E11.69 - Type 2 diabetes mellitus with other specified complication ; E66.9 - Obesity, unspecified Plan: Poorly controlled Accu-Cheks Low-dose sliding scale insulin If not well controlled, will advance to longer acting Check A1c (5) Chronic kidney disease ICD Codes: N18.9 - Chronic kidney disease, unspecified Plan: Patient appears to have chronic kidney disease stage III. GFR on December 15 was 33. GFR today is 38. If no improvement in history of present illness during this hospitalization, will order renal ultrasound with nephrology outpatient follow-up (6) Contusion of head ICD Codes: S00.93XA - Contusion of unspecified part of head, initial encounter Status: Acute Plan: No internal hemorrhage or bleed seen on imaging Swelling between the eyebrows and over the bridge of the nose seen on physical exam Apply ice to forehead to minimize inflammation (7) Hypertension ICD Codes: I10 - Hypertension Status: Acute Plan: Continue home medication Losartan Amlodipine Discontinue hydrochlorothiazide due to concern for renal function (8) Sleep apnea ICD Codes: G47.30 - Sleep apnea, unspecified Status: Acute Plan: May use home CPAP machine (9) FEN Plan: Fluids: IV fluids Electrolytes: Replete as needed (except for sodium) Nutrition: Diabetic diet DVT prophylaxis: Elzbieta Sabillon Physician Certification 2 Midnight Certification Type: Admission for Inpatient Services Order for Inpatient Services The services are ordered in accordance with Medicare regulations or non- Medicare payer requirements, as applicable. In the case of services not specified as inpatient-only, they are appropriately provided as inpatient services in accordance with the 2-midnight benchmark. Estimated LOS (days): 2 2 days is the estimated time the patient will need to remain in the hospital, assuming treatment plan goals are met and no additional complications. Post-Hospital Plan: Home Problem Qualifiers (1) Acute renal failure: Qualified Codes: N17.9 - Acute kidney failure, unspecified (2) Contusion of head: Qualified Codes: S00.93XA - Contusion of unspecified part of head, initial encounter Irma Chu MD R1 Dec 28, 2017 17:59
[2017-12-28] MEDS: FLUTICASONE PROPIONATE 50 MCG/ACT 16 GM NASAL SPRAY EACH NARE SCH (18:45)
[2017-12-28] MEDS ORDERED: SODIUM CHLOR 0.9% 1000 ML INJ 1,000 ML IV SCH (19:27)
[2017-12-28] MEDS ORDERED: MAGNESIUM HYDROXIDE SUSP 30 ML CUP PO PRN (19:30)
[2017-12-28] MEDS ORDERED: BISACODYL 10 MG SUPP RECTAL PRN (19:30)
[2017-12-28] MEDS ORDERED: SENNOSIDES 8.6 MG TAB PO PRN (19:30)
[2017-12-28] MEDS ORDERED: DEXTROSE 50% IN WATER 50 ML VIAL(D50) IV PUSH PRN (20:00)
[2017-12-28] MEDS ORDERED: GLUCAGON 1 MG/ML VIAL OTHER PRN (20:00)
[2017-12-28 20:35] VITALS: BP 144/87; PULSE 88; RESP 17; TEMP 97.9; O2SAT 99
[2017-12-28] MEDS: ENOXAPARIN SODIUM 30 MG/0.3 ML SYRINGE SQ SCH (20:47)
[2017-12-28] MEDS: ATORVASTATIN 20 MG TAB PO SCH (20:47)
[2017-12-28] MEDS: LOSARTAN 50 MG TAB PO SCH (20:47)
[2017-12-28] MEDS: INSULIN ASPART SUPPLEMENTAL SCALE SQ SCH (20:47)
[2017-12-28] MEDS ORDERED: HYDROCHLOROTHIAZIDE 25 MG TAB PO SCH (21:00)
[2017-12-28] MEDS ORDERED: IBUPROFEN 400 MG TAB PO PRN (22:00)
[2017-12-29] VITALS (7 sets, daily range): BP systolic 108–179; BP diastolic 57–95; PULSE 71–93; RESP 17–18; TEMP 97.1–98.7; O2SAT 98–100
[2017-12-29] MEDS ORDERED: ATOR40TA16 PO (01:34)
[2017-12-29 01:37] LABS: BICARBONATE 27.7 MEQ/L (21.0-32.0); CALCIUM 8.2 MG/DL (8.5-10.1); CREATININE 1.21 MG/DL (0.50-1.00)
[2017-12-29] MEDS ORDERED: POTASSIUM CHLORIDE 20 MEQ CONTROLLED RELEASE TAB PO ONE (01:45)
[2017-12-29] MEDS ORDERED: POTASSIUM CHLOR 20 MEQ PREMIX 100 ML IV ONE (02:00)
[2017-12-29] MEDS: ACETAMINOPHEN 325 MG TAB PO PRN ×4 (02:27→22:05)
[2017-12-29 05:58] LABS: ALBUMIN 3.3 GM/DL (3.4-5.0); ALKALINE PHOSPHATASE 90 U/L (45-117); ALT (GPT) 47 U/L (10-53); AST (GOT) 41 U/L (15-37); BICARBONATE 26.4 MEQ/L (21.0-32.0); BLOOD UREA NITROGEN 22 MG/DL (7-18); CALCIUM 8.8 MG/DL (8.5-10.1); CHLORIDE 100 MEQ/L (98-107); CREATININE 1.22 MG/DL (0.50-1.00); GLOMERULAR FILTRATION RATE 56 ML/MIN (>89); GLUCOSE,RANDOM 309 MG/DL (74-106); SODIUM (NA) 137 MEQ/L (136-145); TOTAL BILIRUBIN ADULT 0.4 MG/DL (0.2-1.0)
[2017-12-29] MEDS: FLUTICASONE PROPIONATE 50 MCG/ACT 16 GM NASAL SPRAY EACH NARE SCH ×3 (07:49→08:33)
[2017-12-29] MEDS: LOSARTAN 50 MG TAB PO SCH ×2 (07:49→22:06)
[2017-12-29] MEDS: INSULIN ASPART SUPPLEMENTAL SCALE SQ SCH ×4 (07:50→21:00)
[2017-12-29] MEDS ORDERED: metFORMIN HCL 500 MG TAB PO SCH (09:00)
[2017-12-29] MEDS ORDERED: POTASSIUM CHLORIDE 10 MEQ CONTROLLED RELEASE TAB PO SCH (09:00)
[2017-12-29] MEDS ORDERED: INSULIN DETEMIR 100 UNITS/ML VIAL SQ SCH ×2 (09:00)
--- NOTE | 2017-12-29 10:00 | HHI.HP ---
[facility] Service Family Medicine Primary Care Physician Sienna Lazaro MD Admission Diagnosis Hyponatremia, syncope, acute renal failure Diagnoses: (1) Hypernatremia Diagnosis: Principal (2) Acute renal failure Diagnosis: Principal (3) Hyperlipidemia Diagnosis: Principal (4) Diabetes mellitus type 2 in obese Diagnosis: Principal (5) Chronic kidney disease Diagnosis: Principal (6) Contusion of head Diagnosis: Principal (7) Hypertension Diagnosis: Principal (8) Sleep apnea Diagnosis: Principal (9) FEN Diagnosis: Principal International Travel<30 Days: No Contact w/Intl Traveler<30days: No Known Affected Area: No History of Present Illness Ms Mart is a 52 y/o F w/hx of poorly controlled DM 2 presenting for fall and concussion. Fell and hit her head earlier this afternoon after tripping on carpeting at work and hitting her head on a shelf and then blacked out probably for a very short time as her coworkers heard her fall and came over right away. Does not remember what happened after that. Put hands out to brace fall, had impact. Does not know how long she was down for. Her coworkers helped her get up. Feel fine now. No vision change, numbness, tingling, urinary incontinence, no residual weakness or poor balance. Has a large hematoma on her forehead, no bleeding or other injuries. Had a good breakfast, no palpitations or lightheadedness. No previous fall, no previous head trauma. Recently diagnosed diabetes (2 years ago). Sugars have not been well controlled. 2 weeks ago, her PCP increased Glipizide and Metformin due to suspicion of gastroparesis: one month ago, patient started having nausea and vomiting, poor appetite. [place] ill from food poisoning. Went to the [facility] ED and was found to be hyperglycemic with glucose at 687. Creatinine was 1.9. GFR was 33. Patient was hyponatremic and hypokalemic. Was given a bolus of normal saline and insulin, Toradol for pain and discharge because patient felt better Was referred to Dr. Clark by PCP to evaluate for gastroparesis, has an appointment soon. Takes losartan, potassium, HCTZ, and amlodipine for HTN. Takes atorvastatin for HLD. She is motivated today to improve her DM and saw the early childhood educator aide and will see the museum exhibit technician later today. she has no sequelae at this time from the fall except her hematoma on her mid forehead. Review of Systems Other Constitutional: COMPLAINS OF: Weight loss (20-25 lb over a month) Endocrine: COMPLAINS OF: Polydipsia, Polyuria Eyes: COMPLAINS OF: Blurred vision (2 weeks ago) Ears, nose, mouth, throat: DENIES: Hearing loss, Throat pain Respiratory: DENIES: Cough, Shortness of breath Cardiovascular: DENIES: Chest pain, Palpitations, Lower Extremity Edema Gastrointestinal: DENIES: Black stools, Constipation Genitourinary: DENIES: Urinary frequency, Urinary incontinence Musculoskeletal: DENIES: Joint pain, Muscle aches Integumentary: DENIES: Abnormal pigmentation Hematologic/lymphatic: DENIES: Bruising Neurologic: DENIES: Headache, Paresthesias Past Family Social History Past Medical History Diabetes Mellitus HTN HLD sleep apnea - uses CIPAP Past Surgical History Shoulder repair 09/30/2017 Total hysterectomy over 20yrs ago April 2015 Right meniscus repair cholecystectomy Allergies: Coded Allergies: oxycodone (Verified Allergy, Intermediate, HIVES, 12/15/17) lisinopril (Verified Allergy, Mild, Cough, 12/15/17) Family History Mom: heart disease, HTN, and DM2 Dad: aneurysm Social History No drinking or smoking, no recreational or illicit drugs Lives in an apartment alone Physical Exam Vital Signs Vital Signs Date Time Temp Pulse Resp B/P (MAP) Pulse Ox O2 Delivery O2 Flow Rate FiO2 12/29/17 08:00 97.9 79 18 162/72 (102) 99 160/95 (116) 179/87 (117) 12/29/17 04:15 97.7 71 17 116/58 (77) 98 12/29/17 03:21 18 12/29/17 00:00 98.7 79 17 108/57 (74) 98 12/28/17 23:17 Room Air 12/28/17 23:07 18 12/28/17 20:35 97.9 88 17 144/87 (106) 99 12/28/17 16:03 79 16 144/83 (103) 100 Nasal Cannula 2.00 12/28/17 15:29 98.8 89 22 174/94 (120) 100 Room Air Physical Exam GENERAL: Patient in no acute distress. SKIN: Cool and dry. HEAD: Raised round swelling about 3 in across between brows. Tender to palpation at bridge of nose. No other injury. EYES: Extraocular motions intact. No scleral icterus. ENT: Mucus membranes moist. No oral lesions. NECK: Trachea midline. CARDIOVASCULAR: Regular rate and rhythm without murmurs, gallops, or rubs. RESPIRATORY: Clear to auscultation. GASTROINTESTINAL: Abdomen soft, non-tender, nondistended. MUSCULOSKELETAL: Extremities without clubbing, cyanosis, or edema. NEUROLOGICAL: Awake and alert x3. No focal deficits. Motor and sensory grossly within normal limits. Five out of 5 muscle strength in all muscle groups. Normal speech. Laboratory Laboratory Tests Test 12/28/17 15:26 12/28/17 17:16 12/29/17 00:37 12/29/17 04:36 White Blood Count 9.5 Red Blood Count 4.10 Hemoglobin 11.7 Hematocrit 34.0 Mean Corpuscular Volume 83.1 Mean Corpuscular Hemoglobin 28.7 Mean Corpuscular Hemoglobin Concent 34.5 Red Cell Distribution Width 14.6 Platelet Count 184 Mean Platelet Volume 10.5 Neutrophils (%) (Auto) 46.1 Lymphocytes (%) (Auto) 43.5 Monocytes (%) (Auto) 6.5 Eosinophils (%) (Auto) 3.2 Basophils (%) (Auto) 0.7 Neutrophils # (Auto) 4.4 Lymphocytes # (Auto) 4.1 Monocytes # (Auto) 0.6 Eosinophils # (Auto) 0.3 Basophils # (Auto) 0.1 CBC Comment DIFF FINAL Differential Comment Prothrombin Time 10.4 Prothromb Time International Ratio 1.0 Activated Partial Thromboplast Time 24.0 Blood Urea Nitrogen 33 23 22 Creatinine 1.70 1.21 1.22 Random Glucose 401 313 309 Total Protein 8.6 7.0 Albumin 4.1 3.3 Calcium Level 9.2 8.2 8.8 Magnesium Level 1.3 Alkaline Phosphatase 111 90 Aspartate Amino Transf (AST/SGOT) 57 41 Alanine Aminotransferase (ALT/SGPT) 60 47 Total Bilirubin 0.4 0.4 Sodium Level 159 139 137 Potassium Level 4.3 2.9 3.7 Chloride Level 120 100 100 Carbon Dioxide Level 25.8 27.7 26.4 Anion Gap 13 11 11 Estimat Glomerular Filtration Rate 38 56 56 Total Creatine Kinase 309 Creatine Kinase MB 2.0 Creatine Kinase MB % 0.6 Troponin I LESS THAN 0.02 Urine Color LIGHT-YELLOW Urine Turbidity CLEAR Urine pH 5.0 Urine Specific [place] 1.014 Urine Protein TRACE Urine Glucose (UA) 1000 Urine Ketones NEG Urine Occult Blood NEG Urine Nitrite NEG Urine Bilirubin NEG Urine Urobilinogen LESS THAN 2.0 Urine Leukocyte Esterase NEG Urine RBC LESS THAN 1 Urine WBC 1 Urine Squamous Epithelial Cells <1 Urine Hyaline Casts 1 Urine Mucus FEW Microscopic Urinalysis Comment CULT NOT INDICATED Urine Osmolality 524 Result Diagram: 12/28/17 1526 12/29/17 0436 Caprini VTE Risk Assessment Caprini VTE Risk Assessment: Mod/High Risk (score >= 2) Caprini Risk Assessment Model Point Value = 1 Point Value = 2 Point Value = 3 Point Value = 5 Age 41-60 Minor surgery BMI > 25 kg/m2 Swollen legs Varicose veins or History of unexplained or recurrent spontaneous Oral contraceptives or hormone replacement Sepsis (< 1 month) Serious lung disease, including pneumonia (< 1 month) Abnormal pulmonary function Acute myocardial infarction Congestive heart failure (< 1 month) History of inflammatory bowel disease Medical patient at bed rest Age 61-74 Arthroscopic surgery Major open surgery (> 45 min) Laparoscopic surgery (> 45 min) Malignancy Confined to bed (> 72 hours) Immobilizing plaster cast Central venous access Age >= 75 History of VTE Family history of VTE Factor V Leiden Prothrombin [id number] Lupus anticoagulant Anticardiolipin antibodies Elevated serum homocysteine Heparin-induced thrombocytopenia Other congenital or acquired thrombophilia Stroke (< 1 month) Elective arthroplasty Hip, pelvis, or leg fracture Acute spinal cord injury (< 1 month) Prophylaxis Regimen Total Risk Factor Score Risk Level Prophylaxis Regimen 0-1 Low Early ambulation 2 Moderate Order ONE of the following: *Sequential Compression Device (SCD) *Heparin 5000 units SQ BID 3-4 Higher Order ONE of the following medications: *Heparin 5000 units SQ TID *Enoxaparin/Lovenox 40 mg SQ daily (WT < 150 kg, CrCl > 30 mL/min) *Enoxaparin/Lovenox 30 mg SQ daily (WT < 150 kg, CrCl > 10-29 mL/min) *Enoxaparin/Lovenox 30 mg SQ BID (WT < 150 kg, CrCl > 30 mL/min) AND/OR *Sequential Compression Device (SCD) 5 or more Highest Order ONE of the following medications: *Heparin 5000 units SQ TID (Preferred with Epidurals) *Enoxaparin/Lovenox 40 mg SQ daily (WT < 150 kg, CrCl > 30 mL/min) *Enoxaparin/Lovenox 30 mg SQ daily (WT < 150 kg, CrCl > 10-29 mL/min) *Enoxaparin/Lovenox 30 mg SQ BID (WT < 150 kg, CrCl > 30 mL/min) AND *Sequential Compression Device (SCD) Assessment and Plan Assessment and Plan Patient is a 52-year-old female with history of poorly controlled diabetes mellitus who is admitted for pseudohyponatremia because of her high glucose and HANNA. Patient is completely asymptomatic. Initially came to ED after a fall and hitting her head and underwent a workup. CT imaging showed no trauma. Sodium level and glucose levels were found to be elevated, along with BUN/creatinine. Sodium level corrected for hyperglycemia is at 166. She is completely asymptomatic. Findings may be secondary to osmotic diuresis from poorly controlled diabetes. We'll slowly replenish electrolytes and provide IV fluids. Will improve diabetic control and continue to monitor. Problem List: (1) Hypernatremia ICD Codes: E87.0 - Hyperosmolality and hypernatremia Status: Acute Plan: Possible history of GI losses, however no recent severe/acute episodes. No recent skin losses with a glucose over 200-250 glucose and water keeps getting lost in the urine so she is dehydrated from that Target a change of normal saline no more than 7 mEq over 24 hours to avoid complications (i.e. cerebral edema) Based on calculations, patient would require 2 L of normal saline for 20 hours to achieve this target Plan to slowly replete normal saline via normal saline running at maintenance Check BMP in q6 hours. If no improvement noted, may increase amount of IV fluids running or advance to half normal saline ordered urine osmolality (2) Acute renal failure ICD Codes: N17.9 - Acute kidney failure, unspecified Status: Acute Plan: BUN and of 33, creatinine of 1.7. Creatinine done on 12/15/17 of this year is at 1.9. IV fluids maintenance Monitor daily CMP for improvement with her DM she may have some chronic renal decline (3) Hyperlipidemia ICD Codes: E78.5 - Hyperlipidemia Status: Acute Plan: Continue atorvastatin (4) Diabetes mellitus type 2 in obese ICD Codes: E11.69 - Type 2 diabetes mellitus with other specified complication ; E66.9 - Obesity, unspecified Plan: Poorly controlled Accu-Cheks Low-dose sliding scale insulin If not well controlled, will advance to longer acting Check A1c (5) Chronic kidney disease ICD Codes: N18.9 - Chronic kidney disease, unspecified Plan: Patient appears to have chronic kidney disease stage III. GFR on December 15 was 33. GFR today is 38. If no improvement in history of present illness during this hospitalization, will order renal ultrasound with nephrology outpatient follow-up (6) Contusion of head ICD Codes: S00.93XA - Contusion of unspecified part of head, initial encounter Status: Acute Plan: No internal hemorrhage or bleed seen on imaging Swelling between the eyebrows and over the bridge of the nose seen on physical exam mild concussion per history and exam Apply ice to forehead to minimize inflammation (7) Hypertension ICD Codes: I10 - Hypertension Status: Acute Plan: Continue home medication Losartan can effect renal fxn Amlodipine Discontinued hydrochlorothiazide due to concern for renal function, can restart once her DM is better and she is not having polyuria (8) Sleep apnea ICD Codes: G47.30 - Sleep apnea, unspecified Status: Acute Plan: May use home CPAP machine (9) FEN Plan: Fluids: IV fluids Electrolytes: Replete as needed (except for sodium) Nutrition: Diabetic diet DVT prophylaxis: Lovenox, SCDs Problem Qualifiers (1) Acute renal failure: Qualified Codes: N17.9 - Acute kidney failure, unspecified (2) Hyperlipidemia: Qualified Codes: E78.5 - Hyperlipidemia, unspecified (3) Chronic kidney disease: Qualified Codes: N18.3 - Chronic kidney disease, stage 3 (moderate) (4) Contusion of head: Qualified Codes: S00.93XA - Contusion of unspecified part of head, initial encounter (5) Hypertension: Qualified Codes: I10 - Essential (primary) hypertension (6) Sleep apnea: Qualified Codes: G47.30 - Sleep apnea, unspecified Monica Molina MD Dec 29, 2017 10:00
--- NOTE | 2017-12-29 10:01 | HHI.HP ---
[facility] Service Family Medicine Primary Care Physician Sienna Lazaro MD Admission Diagnosis Hyponatremia, syncope, acute renal failure Diagnoses: (1) Hypernatremia (2) Acute renal failure (3) Hyperlipidemia (4) Diabetes mellitus type 2 in obese (5) Chronic kidney disease (6) Contusion of head (7) Hypertension (8) Sleep apnea (9) FEN International Travel<30 Days: No Contact w/Intl Traveler<30days: No Known Affected Area: No History of Present Illness Patient is a 52 y/o F w/hx of poorly controlled DM 2 presenting for fall and syncope. Fell and hit her head earlier this afternoon after tripping on carpeting at work and blacked out. Does not remember what happened after that. Put hands out to brace fall, had impact. Does not know how long she was down for. Her coworkers helped her get up. Feel fine now. No vision change, numbness, tingling , urinary incontinence, no residual weakness or poor balance. Feels a large mass /swelling on her forehead, no bleeding or other injuries. Had a good breakfast , no palpitations or lightheadedness. No previous fall, no previous head trauma. Recently diagnosed diabetes (2 years ago). Sugars have not been well controlled. 2 weeks ago, her PCP increased Glipizide and Metformin due to suspicion of gastroparesis: one month ago, patient started having nausea and vomiting, poor appetite. [place] ill from food poisoning. Went to the [facility] ED and was found to be hyperglycemic with glucose at 687. Creatinine was 1.9. GFR was 33. Patient was hyponatremic and hypokalemic. Was given a bolus of normal saline and insulin, Toradol for pain and discharge because patient felt better Was referred to Dr. Clark by PCP to evaluate for gastroparesis, has an appointment soon. Takes losartan, potassium, HCTZ, and amlodipine for HTN. Takes atorvastatin for HLD. Past Family Social History Past Medical History Diabetes Mellitus HTN HLD sleep apnea - uses CIPAP Past Surgical History Shoulder repair 09/30/2017 Total hysterectomy over 20yrs ago April 2015 Right meniscus repair cholecystectomy Allergies: Coded Allergies: oxycodone (Verified Allergy, Intermediate, HIVES, 12/15/17) lisinopril (Verified Allergy, Mild, Cough, 12/15/17) Family History Mom: heart disease, HTN, and DM2 Dad: aneurysm Social History No drinking or smoking, no recreational or illicit drugs Lives in an apartment alone Physical Exam Vital Signs Vital Signs Date Time Temp Pulse Resp B/P (MAP) Pulse Ox O2 Delivery O2 Flow Rate FiO2 12/29/17 08:00 97.9 79 18 162/72 (102) 99 160/95 (116) 179/87 (117) 12/29/17 04:15 97.7 71 17 116/58 (77) 98 12/29/17 03:21 18 12/29/17 00:00 98.7 79 17 108/57 (74) 98 12/28/17 23:17 Room Air 12/28/17 23:07 18 12/28/17 20:35 97.9 88 17 144/87 (106) 99 12/28/17 16:03 79 16 144/83 (103) 100 Nasal Cannula 2.00 12/28/17 15:29 98.8 89 22 174/94 (120) 100 Room Air Physical Exam GENERAL: This is a well-nourished, well-developed patient, in no apparent distress. SKIN: No rashes, ecchymoses or lesions. Cool and dry. HEAD: Atraumatic. Normocephalic. No temporal or scalp tenderness. EYES: Pupils equal round and reactive. Extraocular motions intact. No scleral icterus. No injection or drainage. ENT: Nose without bleeding, purulent drainage or septal hematoma. Throat without erythema, tonsillar hypertrophy or exudate. Uvula midline. Airway patent. NECK: Trachea midline. No JVD or lymphadenopathy. Supple, nontender, no meningeal signs. CARDIOVASCULAR: Regular rate and rhythm without murmurs, gallops, or rubs. RESPIRATORY: Clear to auscultation. Breath sounds equal bilaterally. No wheezes , rales, or rhonchi. GASTROINTESTINAL: Abdomen soft, non-tender, nondistended. No hepato-splenomegaly , or palpable masses. No guarding. MUSCULOSKELETAL: Extremities without clubbing, cyanosis, or edema. No joint tenderness, effusion, or edema noted. No calf tenderness. Negative Homans sign bilaterally. NEUROLOGICAL: Awake and alert. Cranial nerves II through XII intact. Motor and sensory grossly within normal limits. Five out of 5 muscle strength in all muscle groups. Normal speech. Laboratory Laboratory Tests Test 12/28/17 15:26 12/28/17 17:16 3/15/18 00:37 12/29/17 04:36 White Blood Count 9.5 Red Blood Count 4.10 Hemoglobin 11.7 Hematocrit 34.0 Mean Corpuscular Volume 83.1 Mean Corpuscular Hemoglobin 28.7 Mean Corpuscular Hemoglobin Concent 34.5 Red Cell Distribution Width 14.6 Platelet Count 184 Mean Platelet Volume 10.5 Neutrophils (%) (Auto) 46.1 Lymphocytes (%) (Auto) 43.5 Monocytes (%) (Auto) 6.5 Eosinophils (%) (Auto) 3.2 Basophils (%) (Auto) 0.7 Neutrophils # (Auto) 4.4 Lymphocytes # (Auto) 4.1 Monocytes # (Auto) 0.6 Eosinophils # (Auto) 0.3 Basophils # (Auto) 0.1 CBC Comment DIFF FINAL Differential Comment Prothrombin Time 10.4 Prothromb Time International Ratio 1.0 Activated Partial Thromboplast Time 24.0 Blood Urea Nitrogen 33 23 22 Creatinine 1.70 1.21 1.22 Random Glucose 401 313 309 Total Protein 8.6 7.0 Albumin 4.1 3.3 Calcium Level 9.2 8.2 8.8 Magnesium Level 1.3 Alkaline Phosphatase 111 90 Aspartate Amino Transf (AST/SGOT) 57 41 Alanine Aminotransferase (ALT/SGPT) 60 47 Total Bilirubin 0.4 0.4 Sodium Level 159 139 137 Potassium Level 4.3 2.9 3.7 Chloride Level 120 100 100 Carbon Dioxide Level 25.8 27.7 26.4 Anion Gap 13 11 11 Estimat Glomerular Filtration Rate 38 56 56 Total Creatine Kinase 309 Creatine Kinase MB 2.0 Creatine Kinase MB % 0.6 Troponin I LESS THAN 0.02 Urine Color LIGHT-YELLOW Urine Turbidity CLEAR Urine pH 5.0 Urine Specific [place] 1.014 Urine Protein TRACE Urine Glucose (UA) 1000 Urine Ketones NEG Urine Occult Blood NEG Urine Nitrite NEG Urine Bilirubin NEG Urine Urobilinogen LESS THAN 2.0 Urine Leukocyte Esterase NEG Urine RBC LESS THAN 1 Urine WBC 1 Urine Squamous Epithelial Cells <1 Urine Hyaline Casts 1 Urine Mucus FEW Microscopic Urinalysis Comment CULT NOT INDICATED Urine Osmolality 524 Result Diagram: 12/28/17 1526 12/29/17 0436 Caprini VTE Risk Assessment Caprini VTE Risk Assessment: Mod/High Risk (score >= 2) Caprini Risk Assessment Model Point Value = 1 Point Value = 2 Point Value = 3 Point Value = 5 Age 41-60 Minor surgery BMI > 25 kg/m2 Swollen legs Varicose veins or History of unexplained or recurrent spontaneous Oral contraceptives or hormone replacement Sepsis (< 1 month) Serious lung disease, including pneumonia (< 1 month) Abnormal pulmonary function Acute myocardial infarction Congestive heart failure (< 1 month) History of inflammatory bowel disease Medical patient at bed rest Age 61-74 Arthroscopic surgery Major open surgery (> 45 min) Laparoscopic surgery (> 45 min) Malignancy Confined to bed (> 72 hours) Immobilizing plaster cast Central venous access Age >= 75 History of VTE Family history of VTE Factor V Leiden Prothrombin [id number] Lupus anticoagulant Anticardiolipin antibodies Elevated serum homocysteine Heparin-induced thrombocytopenia Other congenital or acquired thrombophilia Stroke (< 1 month) Elective arthroplasty Hip, pelvis, or leg fracture Acute spinal cord injury (< 1 month) Prophylaxis Regimen Total Risk Factor Score Risk Level Prophylaxis Regimen 0-1 Low Early ambulation 2 Moderate Order ONE of the following: *Sequential Compression Device (SCD) *Heparin 5000 units SQ BID 3-4 Higher Order ONE of the following medications: *Heparin 5000 units SQ TID *Enoxaparin/Lovenox 40 mg SQ daily (WT < 150 kg, CrCl > 30 mL/min) *Enoxaparin/Lovenox 30 mg SQ daily (WT < 150 kg, CrCl > 10-29 mL/min) *Enoxaparin/Lovenox 30 mg SQ BID (WT < 150 kg, CrCl > 30 mL/min) AND/OR *Sequential Compression Device (SCD) 5 or more Highest Order ONE of the following medications: *Heparin 5000 units SQ TID (Preferred with Epidurals) *Enoxaparin/Lovenox 40 mg SQ daily (WT < 150 kg, CrCl > 30 mL/min) *Enoxaparin/Lovenox 30 mg SQ daily (WT < 150 kg, CrCl > 10-29 mL/min) *Enoxaparin/Lovenox 30 mg SQ BID (WT < 150 kg, CrCl > 30 mL/min) AND *Sequential Compression Device (SCD) Assessment and Plan Assessment and Plan Patient is a 52-year-old female with history of poorly controlled diabetes mellitus who is admitted for hypernatremia and HANNA. Patient is completely asymptomatic. Initially came to ED after a fall and hitting her head and underwent a workup. CT imaging showed no trauma. Sodium level and glucose levels were found to be elevated, along with BUN/creatinine. Sodium level corrected for hyperglycemia is at 166. She is completely symptomatic. Findings may be secondary to osmotic diuresis from poorly controlled diabetes. Order urine osmolality to rule out diabetes insipidus. We'll slowly replenish electrolytes and provide IV fluids. Will improve diabetic control and continue to monitor. Problem List: (1) Hypernatremia ICD Codes: E87.0 - Hyperosmolality and hypernatremia Status: Acute Plan: Possible history of GI losses, however no recent severe/acute episodes. No recent skin losses Target a change of normal saline no more than 7 mEq over 24 hours to avoid complications (i.e. cerebral edema) Based on calculations, patient would require 2 L of normal saline for 20 hours to achieve this target Plan to slowly replete normal saline via normal saline running at maintenance Check BMP in q6 hours. If no improvement noted, may increase amount of IV fluids running or advance to half normal saline order urine osmolality (2) Acute renal failure ICD Codes: N17.9 - Acute kidney failure, unspecified Status: Acute Plan: BUN and of 33, creatinine of 1.7. Creatinine done on 12/15/17 of this year is at 1.9. IV fluids maintenance Monitor daily CMP for improvement (3) Hyperlipidemia ICD Codes: E78.5 - Hyperlipidemia Status: Acute Plan: Continue atorvastatin (4) Diabetes mellitus type 2 in obese ICD Codes: E11.69 - Type 2 diabetes mellitus with other specified complication ; E66.9 - Obesity, unspecified Plan: Poorly controlled Accu-Cheks Low-dose sliding scale insulin If not well controlled, will advance to longer acting Check A1c (5) Chronic kidney disease ICD Codes: N18.9 - Chronic kidney disease, unspecified Plan: Patient appears to have chronic kidney disease stage III. GFR on December 15 was 33. GFR today is 38. If no improvement in history of present illness during this hospitalization, will order renal ultrasound with nephrology outpatient follow-up (6) Contusion of head ICD Codes: S00.93XA - Contusion of unspecified part of head, initial encounter Status: Acute Plan: No internal hemorrhage or bleed seen on imaging Swelling between the eyebrows and over the bridge of the nose seen on physical exam Apply ice to forehead to minimize inflammation (7) Hypertension ICD Codes: I10 - Hypertension Status: Acute Plan: Continue home medication Losartan Amlodipine Discontinue hydrochlorothiazide due to concern for renal function (8) Sleep apnea ICD Codes: G47.30 - Sleep apnea, unspecified Status: Acute Plan: May use home CPAP machine (9) FEN Plan: Fluids: IV fluids Electrolytes: Replete as needed (except for sodium) Nutrition: Diabetic diet DVT prophylaxis: Lovenox, SCDs Problem Qualifiers (1) Acute renal failure: Qualified Codes: N17.9 - Acute kidney failure, unspecified (2) Contusion of head: Qualified Codes: S00.93XA - Contusion of unspecified part of head, initial encounter Monica Molina MD Dec 29, 2017 10:01
[2017-12-29] MEDS ORDERED: MAGNESIUM OXIDE 400 MG TAB PO ONE (10:15)
[2017-12-29] MEDS: MAGNESIUM SULFATE 1 GM PREMIX 100 ML IV SCH ×2 (10:59→11:51)
--- NOTE | 2017-12-29 14:03 | EKG ---
Date Performed: 12/28/2017 Time Performed: 15:23:46 PTAGE: 52 years EKG: Sinus rhythm NORMAL ECG Since the PREVIOUS TRACING , no significant change noted PREVIOUS TRACIN09/20/2017 11.17 DOCTOR: Toyin House Interpretating Date/Time 12/29/2017 13:55:24
[2017-12-29] MEDS ORDERED: FLUTICASONE PROPIONATE 50 MCG/ACT 16 GM NASAL SPRAY EACH NARE PRN (14:30)
[2017-12-29 16:11] LABS: HEMOGLOBIN A1C 15.9 % (4.3-6.0)
[2017-12-29] MEDS: INSULIN DETEMIR 100 UNITS/ML VIAL SQ SCH (21:00)
[2017-12-29] MEDS: ATORVASTATIN 20 MG TAB PO SCH (22:06)
[2017-12-29] MEDS: ENOXAPARIN SODIUM 30 MG/0.3 ML SYRINGE SQ SCH (22:12)
[2017-12-30] VITALS: BP 116/66; PULSE 78; RESP 16; TEMP 98.1; O2SAT 97
[2017-12-30 06:29] LABS: ALBUMIN 3.3 GM/DL (3.4-5.0); ALT (GPT) 52 U/L (10-53); AST (GOT) 47 U/L (15-37); BICARBONATE 29.1 MEQ/L (21.0-32.0); BLOOD UREA NITROGEN 15 MG/DL (7-18); CALCIUM 8.7 MG/DL (8.5-10.1); CHLORIDE 100 MEQ/L (98-107); CREATININE 1.14 MG/DL (0.50-1.00); GLOMERULAR FILTRATION RATE 60 ML/MIN (>89); GLUCOSE,RANDOM 264 MG/DL (74-106); SODIUM (NA) 138 MEQ/L (136-145)
[2017-12-30 06:31] LABS: ALKALINE PHOSPHATASE 98 U/L (45-117); TOTAL BILIRUBIN ADULT 0.4 MG/DL (0.2-1.0); TOTAL PROTEIN 7.1 GM/DL (6.4-8.2)
[2017-12-30 08:00] VITALS: BP 142/69; PULSE 73; RESP 16; TEMP 97.6; O2SAT 99
[2017-12-30] MEDS: INSULIN ASPART SUPPLEMENTAL SCALE SQ SCH ×2 (08:00→12:00)
[2017-12-30] MEDS: INSULIN DETEMIR 100 UNITS/ML VIAL SQ SCH (08:46)
[2017-12-30] MEDS: LOSARTAN 50 MG TAB PO SCH (08:46)
[2017-12-30] MEDS: ACETAMINOPHEN 325 MG TAB PO PRN (08:52)
[2017-12-30 10:33] VITALS: O2SAT 99
[2017-12-30] MEDS ORDERED: METF1000 PO (11:20)
[2017-12-30] MEDS ORDERED: LANTINJ SQ (11:20)
--- NOTE | 2017-12-30 11:23 | HHI.DCPOC ---
Discharge Care Plan Diagnosis: (1) Hypernatremia (2) Poorly controlled type 2 diabetes mellitus (3) Chronic kidney disease Goals to Promote Your Health * To prevent worsening of your condition and complications * To maintain your health at the optimal level Directions to Meet Your Goals Take your medications as prescribed Follow your dietary instruction Follow activity as directed Keep your appointments as scheduled Take your immunizations and boosters as scheduled If your symptoms worsen call your PCP, if no PCP go to Urgent Care Center or Emergency Room Smoking is Dangerous to Your Health. Avoid second hand smoke Call the 24-hour hour crisis hotline for domestic abuse at Ursula Gruber MD, R3 Dec 30, 2017 11:23
[2017-12-30 12:00] VITALS: BP 155/73; PULSE 76; RESP 16; TEMP 98; O2SAT 99
[2017-12-30] MEDS ORDERED: POTASSIUM CHLORIDE 20 MEQ CONTROLLED RELEASE TAB PO ONE (13:00)
--- NOTE | 2017-12-30 15:06 | HHI.FPPN ---
Subjective Remarks No acute issues overnight. Vitals are stable, patient remains afebrile. She continues to have some soreness in her head, but denies any visual changes, headache, weakness, paresthesias, chest pain, shortness of breath, fever, chills , nausea or vomiting. She is tolerating p.o. intake and ambulating without difficulty. (Ursula Gruber MD, R3) Objective Vitals Vital Signs Date Time Temp Pulse Resp B/P (MAP) Pulse Ox O2 Delivery O2 Flow Rate FiO2 12/30/17 10:33 99 Nasal Cannula 2.00 12/30/17 09:53 18 12/30/17 08:00 97.6 73 16 142/69 (93) 99 12/30/17 00:00 98.1 78 16 116/66 (83) 97 12/29/17 22:50 Room Air 12/29/17 20:00 97.7 77 18 142/67 (92) 98 I/O 12/29/17 12/29/17 12/29/17 12/30/17 12/30/17 12/30/17 06:59 14:59 22:59 06:59 14:59 22:59 Intake Total 740 ml 960 ml 360 ml Balance 740 ml 960 ml 360 ml Intake Oral 640 ml 960 ml 360 ml IV Total 100 ml # Voids 5 3 1 # Bowel Movements 0 1 0 (Ursula Gruber MD, R3) Result Diagram: 12/28/17 1526 12/30/17 0543 Imaging Last Impressions Head CT 12/28/17 1521 Signed Impressions: Service Date/Time: Thursday, December 28, 2017 15:47 - CONCLUSION: 1. No acute intracranial abnormality. Jose Narayan MD Cervical Spine CT 12/28/17 0000 Signed Impressions: Service Date/Time: Thursday, December 28, 2017 15:47 - CONCLUSION: 1. No acute fracture or prevertebral soft tissue swelling. 2. Mild to moderate spinal stenosis at C5-6 predominantly related to diffuse disc osteophyte complex. 3. Reversal of the normal cervical lordosis. 4. Cervical spondylosis at C5-6. Claude Ng MD Objective Remarks GENERAL: Well-nourished, well-developed -[place] female patient in no acute distress. SKIN: Cool and dry. HEAD: Tender to palpation at bridge of nose. EYES: Extraocular motions intact. No scleral icterus. ENT: Mucus membranes moist. No oral lesions. NECK: Trachea midline. CARDIOVASCULAR: Regular rate and rhythm without murmurs, gallops, or rubs. RESPIRATORY: Clear to auscultation. No wheezes, rales, or rhonchi. GASTROINTESTINAL: Abdomen soft, non-tender, nondistended. MUSCULOSKELETAL: Extremities without clubbing, cyanosis, or edema. NEUROLOGICAL: Awake and alert x3. No focal deficits. Motor and sensory grossly within normal limits. Normal speech. (Ursula Gruber MD, R3) A/P Assessment and Plan Patient is a 52-year-old female with history of poorly controlled diabetes mellitus who is admitted for pseudohyponatremia because of her high glucose and HANNA. Discharge Planning Discharge home today. (Ursula Gruber MD, R3) Attending Attestation Patient seen and examined. Case reviewed and discussed with the resident team. Agree with plan of care as discussed with me and documented in the resident note. improving daily (Monica Molina MD) Problem List: (1) Hypernatremia ICD Codes: E87.0 - Hyperosmolality and hypernatremia Status: Resolved Plan: Resolved with IV fluids. Likely secondary to fluid loss from poorly controlled DM type II. Repeat BMP in 1 week. (2) Acute renal failure ICD Codes: N17.9 - Acute kidney failure, unspecified Status: Acute Plan: Improving Creatinine trending down from 1.7 on admission to 1.14 today BUN trending down from 33 on admission to within normal limits at 15 today with her DM she may have some chronic renal decline, continue to monitor as an outpatient (3) Diabetes mellitus type 2 in obese ICD Codes: E11.69 - Type 2 diabetes mellitus with other specified complication ; E66.9 - Obesity, unspecified Status: Chronic Plan: Poorly controlled Last hemoglobin A1c greater than 14 Levemir 9 units subcu twice daily, will discharge home on Lantus 20 units subcu daily Increase home dose of metformin to 1000 mg p.o. twice daily Continue to monitor blood glucose closely at home 4 times daily Follow-up with PCP in 1 week for further titration of insulin Repeat BMP in 1 week to monitor renal function (4) Hyperlipidemia ICD Codes: E78.5 - Hyperlipidemia Status: Chronic Plan: Continue atorvastatin (5) Contusion of head ICD Codes: S00.93XA - Contusion of unspecified part of head, initial encounter Status: Resolved Plan: Improving No internal hemorrhage or bleed seen on imaging mild concussion per history and exam Supportive care (6) Hypertension ICD Codes: I10 - Hypertension Status: Chronic Plan: Continue home amlodipine and losartan (7) Sleep apnea ICD Codes: G47.30 - Sleep apnea, unspecified Status: Chronic Plan: Continue home CPAP machine (8) FEN Status: Chronic Plan: Fluids: Tolerating PO Electrolytes: Replete as needed Nutrition: Diabetic diet DVT prophylaxis: Lovenox, SCDs (Ursula Gruber MD, R3) Problem Qualifiers (1) Acute renal failure: Qualified Codes: N17.9 - Acute kidney failure, unspecified (2) Hyperlipidemia: Qualified Codes: E78.5 - Hyperlipidemia, unspecified (3) Contusion of head: Qualified Codes: S00.93XA - Contusion of unspecified part of head, initial encounter (4) Hypertension: Qualified Codes: I10 - Essential (primary) hypertension (5) Sleep apnea: Qualified Codes: G47.30 - Sleep apnea, unspecified Ursula Gruber MD, R3 Dec 30, 2017 15:06 Monica Molina MD Jan 02, 2018 21:20
== END 2017-12-30 14:17 | disposition home or self-care (01) | DRG 683 ==
LOC: NEPE 15:17 → NEDA 17:31 → N06B 18:57
PROVIDERS: ADMIT Family Medicine; ATTEND Family Medicine
DX: N17.9 Acute kidney failure, unspecified (principal); E87.0 Hyperosmolality and hypernatremia; E11.22 Type 2 diabetes mellitus with diabetic chronic kidney disease; S06.0X9A Concussion with loss of consciousness of unspecified duration, initial encounter; E86.9 Volume depletion, unspecified; E87.6 Hypokalemia; R55 Syncope and collapse; N18.3 Chronic kidney disease, stage 3 (moderate); I12.9 Hypertensive chronic kidney disease with stage 1 through stage 4 chronic kidney disease, or unspecified chronic kidney disease; E78.5 Hyperlipidemia, unspecified; G47.30 Sleep apnea, unspecified; E66.9 Obesity, unspecified; E11.65 Type 2 diabetes mellitus with hyperglycemia; W01.198A Fall on same level from slipping, tripping and stumbling with subsequent striking against other object, initial encounter; J45.909 Unspecified asthma, uncomplicated; M48.02 Spinal stenosis, cervical region; R41.3 Other amnesia; Z79.84 Long term (current) use of oral hypoglycemic drugs; Y99.0 Civilian activity done for income or pay; Z68.33 Body mass index [BMI] 33.0-33.9, adult
CPT/HCPCS: 70450; 72125; 80048; 80053; 81001; 82550; 82552; 82948; 83036; 83735; 83935; 84484; 85025; 85610; 85730; 93005; 96360; J1650; J1815; J3475; J3480; J7030